=== PATIENT | female | born 1940 | race Caucasian/White ===

== ENCOUNTER 2017-12-29 05:18 | Day surgery (SDC) | payer OTHER, BC ==
[2017-12-25 09:43] VITALS: BMI 34.0
--- NOTE | 2017-12-25 10:41 | PAT Medication Instructions ---
Service Date Dec 25, 2017. Current Home Medication List Acetaminophen (Tylenol), 1,000 MG PO QID PRN for Pain Amlodipine (Norvasc), 10 MG PO BID Ascorbic Acid (Vitamin C), 1 TAB PO QPM Aspirin (Aspirin Ec), 160 MG PO HS Calcium Carbonate-Vitamin D W/ (Caltrate 600 Plus), 1 TAB PO BID Diphenhydramine-Acetaminophen (Acetaminophen Pm Extra St), 1 TAB PO HS Evolocumab (Repatha), 1 DOSE INJ 2x/month Fluticasone Propionate (Nasal) (Flonase Allergy Relief), 1 DOSE SHERLEY UD PRN for prn Gabapentin (Neurontin), 100 MG PO HS PRN for Pain Hydrochlorothiazide (Hydrochlorothiazide), 25 MG PO QAM Lisinopril (Zestril), 40 MG PO QAM Loperamide Hcl (Imodium), 2 MG PO UD PRN for PRN Meclizine HCl (Meclizine 25), 12.5 MG PO UD PRN for dizziness Metformin Hcl (Glucophage), 850 MG PO BID Metoprolol Succ (Toprol Xl) (Toprol-Xl), 50 MG PO BID Nitroglycerin (Nitrostat), 0.4 MG UT PRN Nystatin (Topical) (Nystop), Unknown Dose TOP UD PRN for prn Ranitidine (Zantac), 150 MG PO BID PRN [Coq-10], 100 MG PO QAM [azelastine nasal], Unknown Dose SHERLEY UD PRN for prn [premarin 0.625mg ], Unknown Dose EXT weekly Medication Instructions For Your Scheduled Surgery -Continue as directed: Evolocumab (Repatha), 1 DOSE INJ 2x/month Nitroglycerin (Nitrostat), 0.4 MG UT PRN - Hold the following medications starting now: [Coq-10], 100 MG PO QAM - Hold the following medications per your electric plater's instructions: Aspirin (Aspirin Ec), 160 MG PO HS - Hold the following medications 24 hours prior to surgery: [premarin 0.625mg ], Unknown Dose EXT weekly Nystatin (Topical) (Nystop), Unknown Dose TOP UD PRN for prn - Hold the following medications the morning of surgery: Calcium Carbonate-Vitamin D W/ (Caltrate 600 Plus), 1 TAB PO BID Hydrochlorothiazide (Hydrochlorothiazide), 25 MG PO QAM Lisinopril (Zestril), 40 MG PO QAM Loperamide Hcl (Imodium), 2 MG PO UD PRN for PRN Metformin Hcl (Glucophage), 850 MG PO BID - Take the following medications the morning of surgery with a sip of water: Acetaminophen (Tylenol), 1,000 MG PO QID PRN for Pain (if needed, cane be taken up to four hours before surgery) Amlodipine (Norvasc), 10 MG PO BID Fluticasone Propionate (Nasal) (Flonase Allergy Relief), 1 DOSE SHERLEY UD PRN for prn (if needed) Gabapentin (Neurontin), 100 MG PO HS PRN for Pain (if needed) Meclizine HCl (Meclizine 25), 12.5 MG PO UD PRN for dizziness (if needed) Metoprolol Succ (Toprol Xl) (Toprol-Xl), 50 MG PO BID Ranitidine (Zantac), 150 MG PO BID PRN (if needed) [azelastine nasal], Unknown Dose SHERLEY UD PRN for prn (if needed) - Take the following medications as scheduled the night before surgery: Acetaminophen (Tylenol), 1,000 MG PO QID PRN for Pain (if needed) Amlodipine (Norvasc), 10 MG PO BID Ascorbic Acid (Vitamin C), 1 TAB PO QPM Calcium Carbonate-Vitamin D W/ (Caltrate 600 Plus), 1 TAB PO BID Diphenhydramine-Acetaminophen (Acetaminophen Pm Extra St), 1 TAB PO HS Fluticasone Propionate (Nasal) (Flonase Allergy Relief), 1 DOSE SHERLEY UD PRN for prn (if needed) Gabapentin (Neurontin), 100 MG PO HS PRN for Pain (if needed) Loperamide Hcl (Imodium), 2 MG PO UD PRN for PRN (if needed) Meclizine HCl (Meclizine 25), 12.5 MG PO UD PRN for dizziness (if needed) Metformin Hcl (Glucophage), 850 MG PO BID Metoprolol Succ (Toprol Xl) (Toprol-Xl), 50 MG PO BID Ranitidine (Zantac), 150 MG PO BID PRN (if needed) [azelastine nasal], Unknown Dose SHERLEY UD PRN for prn (if needed) If you have any questions please call us at [phone] or [phone] or [phone]
[2017-12-25 12:08] LABS: BASO % 0.4 %; BASO ABS # 0.04 K/uL (0-0.2); EOS % 2.5 %; EOS ABS # 0.24 K/uL (0-0.5); HEMOGLOBIN 13.1 g/dL (12.0-16.0); IG# 0.04 K/uL (0.00-0.02); LYMPH % 30.2 %; LYMPH ABS # 2.91 K/uL (1.2-3.4); MEAN CELL VOLUME 93.1 fL (80-100); MEAN CORPUSCULAR HEMOGLOBIN 31.3 pg (25-34); MEAN CORPUSCULAR HGB CONC 33.6 g/dl (32-36); MEAN PLATELET VOLUME 9.3 fL (7.4-10.4); MONO % 8.4 %; MONO ABS # 0.81 K/uL (0.11-0.59); NEUT % 58.1 %; NEUT ABS # 5.58 K/uL (1.4-6.5); PLATELET COUNT 387 K/uL (130-400); RED CELL DISTRIBUTION WIDTH CV 13.2 % (11.5-14.5); RED CELL DISTRIBUTION WIDTH SD 45.2 fL (36.4-46.3); WHITE BLOOD COUNT 9.62 K/uL (4.8-10.8)
[~2017-12-29] VITALS: Ht 148.6 cm; Wt 75.6 kg
[~2017-12-29 05:18] MED LIST: ACET-1256 PO; AMLO-114 PO; ASCA500 PO; ASPI81TA28 PO; AZELASTINE NAE; CALCTAB7 PO; COQ-10 PO; DIPH1TAB PO; EVOL1.7I INJ; FLUT0.15 NAE; GABA-112 PO; HYDR12.55 PO; IMD/2 PO; LISI-725 PO; MECL-91 PO; METF-383 PO; METO25TA3 PO; NTRGSL/4 UT; NYST100010 TOP; PREMARIN 0.625 MG EXT; RANI150T85 PO
[2017-12-29 05:56] VITALS: BP 170/80; PULSE 72; TEMP 37; O2SAT 98; Ht 148.6 cm; Wt 75.6 kg
[2017-12-29] MEDS ORDERED: LACTATED RINGER'S 1000ML 1,000 ML IV SCH (06:00)
[2017-12-29] MEDS ORDERED: CEFAZOLIN 2000MG IV PUSH 15 ML IV SCH (06:00)
[2017-12-29] MEDS ORDERED: HEPARIN SOD (PORCINE) 1000 UNIT/ML 10 ML VIAL ONE (06:45)
[2017-12-29] MEDS ORDERED: CEFAZOLIN SOD 1 GM VIAL ONE (06:45)
[2017-12-29] MEDS ORDERED: BUPIVACAINE 0.5 % 5 MG/1 ML MPF 30ML VIAL ONE (06:45)
[2017-12-29] MEDS ORDERED: CONRAY 60% 50 ML VIAL ONE (06:45)
--- NOTE | 2017-12-29 06:54 | History & Physical Bridge Note ---
H&P Re-Evaluation Bridge Note: I have examined the patient, reviewed the History & Physical and in the interval since the performance of the History & Physical I have noted the following changes of clinical significance: No changes noted
[2017-12-29] MEDS ORDERED: MIDAZOLAM HCL 1 MG/ML 2ML VIAL ONE (06:56)
[2017-12-29] MEDS ORDERED: FENTANYL CITRATE INJ 50 MCG/1 ML 2 ML VIAL ONE ×2 (06:56→08:19)
[2017-12-29] MEDS ORDERED: PROPOFOL IV EMULSION 10 MG/ML 20 ML VIAL IV ONE ×2 (07:59→08:21)
[2017-12-29] MEDS ORDERED: ONDANSETRON INJ 2 MG/ML 2 ML VIAL ONE ×2 (07:59→10:14)
[2017-12-29] MEDS ORDERED: ROCURONIUM BROMIDE 10 MG/ML 5 ML VIAL IV ONE (07:59)
[2017-12-29] MEDS ORDERED: LIDOCAINE HCL 2% 2 ML VIAL (20MG/ML) ONE (07:59)
[2017-12-29] MEDS ORDERED: NEOSTIGMINE METHYLSULFATE 5 MG/5 ML SYR ONE (08:04)
[2017-12-29] MEDS ORDERED: GLYCOPYRROLATE INJ 0.2 MG/ML VIAL ONE ×2 (08:04→08:06)
--- NOTE | 2017-12-29 08:26 | [facility] Post Operative Brief Note ---
Immediate Operative Summary Operative Date Dec 29, 2017. Pre-Operative Diagnosis 1.Calculus of Gallbladder without cholecystitis, without obstruction. 2. Sludge in Gallbladder 3. Abdominal Pain, Right Upper Quadrant Post-Operative Diagnosis Same Procedure(s) Performed Laparoscopic Cholecystectomy Surgeon Dr. Clif Zamudio Cross Tie Tram Loader Surgeon(s) None Estimated Blood Loss 5mL Findings Consistent with Post-Op Diagnosis Specimens Permanent A. Gallbladder and Contents Drains None Anesthesia Type General Complication(s) none Disposition Disposition: Recovery Room / PACU
[2017-12-29] MEDS ORDERED: ATROPINE SULFATE 0.1 MG/ML 5ML SYR IV PRN (08:30)
[2017-12-29] MEDS ORDERED: FENTANYL CITRATE INJ 50 MCG/1 ML 2 ML VIAL IV PRN (08:30)
[2017-12-29] MEDS ORDERED: EpHEDrine SULFATE INJ 50 MG/ML AMP IV PRN (08:30)
[2017-12-29] MEDS ORDERED: ONDANSETRON INJ 2 MG/ML 2 ML VIAL IV PRN ×2 (08:30→08:45)
[2017-12-29] MEDS ORDERED: SODIUM CHLORIDE 0.9% 1000ML 1,000 ML IV SCH (08:42)
[2017-12-29] MEDS ORDERED: TRAMADOL HCL 50 MG TAB PO PRN (08:45)
[2017-12-29] MEDS ORDERED: MoRPHine SULFATE 4 MG/ML 1 ML CARP\\VIAL IV PRN (08:45)
--- NOTE | 2017-12-29 08:46 | Discharge Instructions ---
Discharge Instructions Date of Service Dec 29, 2017. Admission Reason for Admission: Calculus Of Gallbladder Discharge Discharge Diagnosis / Problem: Same Discharge Goals Goal(s): Decrease discomfort Activity Recommendations Activity Limitations: per Instructions/Follow-up section Lifting Limitations: no more than 10 pounds (foer 2 weeks) . Instructions / Follow-Up Instructions / Follow-Up Post-Surgical ~ Discharge Instructions Activity Recommendations: - lifting limitation: (10 pounds for 2 weeks), - exercise/sex/sports limit: (nonstrenuous for 2 weeks), - driving or machine use limit: (none for 1 week), - Shower/bathe limit: (may shower beginning tomorrow) Diet: - Resume previous diet SPECIAL CARE INSTRUCTIONS: - May shower in 24 hours. Let water run over area and pat dry. - Leave steri strips on for one week. - Call the surgeon's office with any questions or concerns - - (ex. temperature higher than 101 degrees F, excessive bleeding or pain). MEDICATIONS: - Resume previous medications unless instructed otherwise by your surgeon. - Ibuprofen 600 mg every 6 hours with food - Tramadol 1 every 6 hours, as needed for pain FOLLOW UP VISIT: - If not already scheduled, please call the office to schedule a two week follow-up appointment. Office number Current Hospital Diet Patient's current hospital diet: Discharge Diet Recommended Diet: Diabetes Type 2 Diet Procedures Procedures Performed: Laparoscopic Cholecystectomy Pending Studies Studies pending at discharge: yes List of pending studies: Pathology Medical Emergencies . Who to Call and When: Medical Emergencies: If at any time you feel your situation is an emergency, please call 911 immediately. . Non-Emergent Contact Non-Emergency issues call your: Primary Care Provider, Surgeon Call Non-Emergent contact if: your pain is worsening, wound has increased redness, wound has increased pain . "Provider Documentation" section prepared by Clif Zamudio. . VTE Core Measure Inpt VTE Proph given/why not?: Treatment not indicated
--- NOTE | 2017-12-29 09:22 | Anesthesiology Progress Note ---
Anesthesia Post Op Note Date & Time Dec 29, 2017 at 09:22 Vital Signs Pain Intensity: 0 Vital Signs Past 12 Hours Date Time Temp Pulse Resp B/P (MAP) Pulse Ox O2 Delivery O2 Flow Rate FiO2 12/29/17 08:50 36.3 68 17 127/62 96 Non-Rebreather 10 12/29/17 05:56 37.0 72 16 170/80 (110) 98 Room Air Notes Mental Status: alert / awake / arousable, participated in evaluation Pt Amnestic to Procedure: Yes Nausea / Vomiting: adequately controlled Pain: adequately controlled Airway Patency, RR, SpO2: stable & adequate BP & HR: stable & adequate Hydration State: stable & adequate Anesthetic Complications: no major complications apparent
--- NOTE | 2017-12-29 10:01 | OPERATIVE REPORT ---
DATE OF OPERATION: 12/29/2017 PREOPERATIVE DIAGNOSES: Cholelithiasis, gallbladder sludge and chronic cholecystitis. POSTOPERATIVE DIAGNOSES: Same. PROCEDURE: Laparoscopic cholecystectomy. SURGEON: Dr. Zamudio. FINDINGS: The gallbladder was mildly dilated. The cystic duct was narrow. The liver was enlarged, but smooth. There were tiny stones within the lumen of the gallbladder. TECHNIQUE: The patient was given a general anesthetic and the area was prepped and draped in the usual sterile fashion. Transverse incision was made below the umbilicus, carried down through the subcutaneous tissue to the fascia, which was grasped with 2 Long clamps and incised between. The peritoneum was identified, incised, and the introducer was placed bluntly. The abdomen was then insufflated to a pressure of 15 mmHg of carbon dioxide. The upper midline, mid clavicular and anterior axillary introducers were placed under direct vision through small skin incisions. Traction was placed on the gallbladder beginning on the lateral side. The peritoneum was opened and peeled down towards the common bile duct. Further dissection was carried out on the medial side and over the anterior surface exposing the cystic duct. The infundibulum was dissected away from the liver on the lateral and medial sides. The grasper created a hole in the gallbladder and so suction was used to remove the remainder of the bile. I then elevated the infundibulum and I was able to establish a plane behind the cystic duct. That also allowed me to identify the cystic artery and isolate it. Three clips were placed on the proximal cystic duct, 1 near the gallbladder and it was divided. Two clips were placed on the proximal cystic artery and one near the gallbladder and was divided. Gallbladder was then peeled off the liver bed using cautery. There was 1 vein that was clamped and divided prior to cautery division of the vein. Once the gallbladder was completely from liver, it was placed into an Endobag and brought out through the upper midline incision. That introducer was replaced and the subdiaphragmatic and subhepatic spaces were irrigated. The irrigation was removed and that was repeated until the return was clear. The gallbladder bed of the liver was inspected and there was no bleeding. The previously placed clips were inspected and were intact. The gas was allowed to escape and the introducers were removed. The fascia of the umbilical and upper midline introducer sites was closed with interrupted 0 Vicryl and skin of all the incisions was closed with 4-0 Monocryl in either an interrupted or running subcuticular fashion. The skin was anesthetized with 0.5% Marcaine. The skin was cleansed, dried, benzoin placed, and Steri-Strips applied. Estimated blood loss was 5 mL. Sponge, needle and instrument counts were correct prior to closure. The patient tolerated the surgical procedure without complication and was transferred to recovery. I attest to the content of the Intraoperative Record and any orders documented therein. Any exception s are noted below.
[2017-12-29 10:12] VITALS: BP 140/63; PULSE 74; TEMP 36.8; O2SAT 89
[2017-12-29 10:42] VITALS: BP 130/59; PULSE 67; O2SAT 94
[2017-12-29 11:12] VITALS: BP 121/73; PULSE 70; TEMP 36.7; O2SAT 93
== END 2017-12-29 11:39 | disposition home or self-care (01) ==
LOC: C.ACU 05:18
PROVIDERS: ATTEND Surgery
DX: K80.10 Calculus of gallbladder with chronic cholecystitis without obstruction (principal); K82.8 Other specified diseases of gallbladder; I25.10 Atherosclerotic heart disease of native coronary artery without angina pectoris; I10 Essential (primary) hypertension; M19.90 Unspecified osteoarthritis, unspecified site; I73.9 Peripheral vascular disease, unspecified; E11.9 Type 2 diabetes mellitus without complications; K21.9 Gastro-esophageal reflux disease without esophagitis; K75.81 Nonalcoholic steatohepatitis (NASH); Z88.1 Allergy status to other antibiotic agents; Z98.51 Tubal ligation status; Z90.710 Acquired absence of both cervix and uterus; F17.200 Nicotine dependence, unspecified, uncomplicated; Z79.82 Long term (current) use of aspirin; Z79.899 Other long term (current) drug therapy; Z98.890 Other specified postprocedural states

== ENCOUNTER 2023-06-20 11:41 | Inpatient (IN) ==
--- NOTE | 2023-06-20 11:47 | Emergency Department Note ---
Impression & Plan Nausea & vomiting, Stroke-like symptoms, Back pain ED Provider Note NAME: COREY BORJA AGE: 82 SEX: F : 1940 ARRIVES VIA: Ambulance INFORMANT: Patient, ED PROVIDER(S): Reno Toro MD CHIEF COMPLAINT: Possible right-sided weakness, vomiting, back pain MEDICAL DECISION MAKING: Patient's last known well was midnight not a TNK candidate. EMS was concerned as the patient might have some left-sided weakness but this could have been secondary to pain. Patient reportedly did have a recent fall about a week and a half ago and did have some imaging completed which did show a vertebral compression fracture of the thoracic spine. Patient reportedly was mildly lethargic and mildly hypertensive and did have an episode of vomiting. Stroke protocols initiated but not a TNK candidate given last known well at midnight. Initially no records to review other than a medication list. Patient does take aspirin but no other blood thinners. I did ask case management to look through the patient's [facility] records for most recent primary care visit note and medication list. Patient's blood work shows no leukocytosis of 14 but this could be related to recent steroid use. The patient's hemoglobin is slightly low at 11.3. Platelet count is normal. Kidney function unremarkable but an elevated BUN. The patient did receive IV fluids as well as calcium replacement for hypocalcemia. CT head and angiography's are negative. The patient's initial troponin negative. Urinalysis negative for blood or infection. Given the patient's symptoms and reported feelings of weakness on the left side do not think it unreasonable to keep in hospital for further evaluation and treatment. Did speak with Joellen Shen PA-C and the patient was admitted to the medicine service. Critical Care: I have personally spent 35 minutes of critical care time in direct management of this patient. This includes bedside care, interpretation of diagnostic studies, and testing, discussion with consultants, patient, and family members, and other require inpatient management activities. This 35 minutes is in excess of all separately billable procedures. Prior /Outside records reviewed: I reviewed an outpatient [employer] note from Dr. Solomon dated June 16, 2023. Plan at that time was to trial some baclofen and steroids. The patient was pending an x-ray at that time. X-ray results not available at the time of the visit. Differential diagnosis: Musculoskeletal pain, referred pain, stroke, mini stroke, gastroenteritis, enteritis, electrolyte abnormality. Diagnostics, as interpreted by me: ECG: Normal sinus rhythm, rate of 100, normal intervals, normal axis no ST elevations. Slight ST depression noted in the lateral leads. Cardiac monitoring: An order was placed for continuous cardiac monitoring. The monitor shows a rate of 77 with sinus rhythm. Patient was placed on pulse oximetry Medical decision rules: None Imaging studies: See below I informally reviewed the patient's CT noncontrast of the head which does not show obvious ICH. HPI: Patient presents from home via EMS due to concern for back pain nausea vomiting and possible left-sided weakness. The patient reports that she did feel as though there was a burning in of in her throat that radiated downward and seem to progressed to her left arm and left leg. Patient denies any falls or trauma since she had a fall about 10 days ago. Patient did have some associated nausea and vomiting in route did receive Zofran. Patient denies any headache or current nausea. Patient has been taking muscle relaxants and prednisone after recent diagnosis of a compression fracture in her back. Patient states that this has improved some of her symptoms. Patient does not take anything for symptoms this morning. Patient denies any chest pains or shortness of breath. The patient stated cough that is nonproductive. She denies any alcohol or tobacco use. Family bedside also states that the patient does take aspirin but no blood thinners and the patient has had no falls since she had a fall 2 Saturdays ago. BSG in route was not low. PAST MEDICAL HISTORY: See Below PAST SURGICAL HISTORY: See Below SOCIAL HISTORY: See Below HOME MEDICATIONS: See Below ALLERGIES: See Below VITALS: See Below PHYSICAL EXAMINATION: GENERAL: Fatigued in appearance but nontoxic. EYE EXAM: Normal conjunctiva. PERRL, no anisocoria and EOM's grossly intact w/o pain. OROPHARYNX: Moist mucus membranes, grossly normal dentition. NECK: Supple, no nuchal rigidity, no adenopathy, non-tender. No signs of meningismus. FROM of the neck with good chin to chest and neck extension. No stridor. LUNGS: Clear to auscultation. Normal chest wall mechanics. HEART: NSR, no MRG. ABDOMEN: Abdomen soft, non-tender, no masses, no rebound or guarding. BACK: Lower thoracic/upper lumbar midline spine discomfort. No step-offs. SKIN: No rashes and no bruising. UPPER EXTREMITIES: Upper extremities are grossly normal. LOWER EXTREMITIES: Grossly normal, no edema. NEURO EXAM: A&O x3, cranial nerves II-XII grossly intact, normal speech, moves all 4 extremities. Good oxxemd-en-cjmc, no drift and no sensory deficits. Past Med/Surg History Medical History ASCVD (arteriosclerotic cardiovascular disease) CKD (chronic kidney disease) stage 3, GFR 30-59 ml/min Diverticulitis Dyslipidemia Essential hypertension GERD (gastroesophageal reflux disease) Lumbar spinal stenosis Osteoarthritis Peripheral vascular disease Type 2 diabetes mellitus Urge incontinence of urine Surgical History History of cataract surgery History of hysterectomy History of laparoscopic cholecystectomy History of tubal ligation S/P arthroscopic knee surgery S/P vaginopexy Status post angioplasty with stent Family History Mother Hypertension Breast cancer Father Hypertension Heart disease Aunt Breast cancer Sister Ovarian cancer Social History Smoking Status: Never smoker Second Hand Exposure: No; Do You Dip or Chew Tobacco: No; Tobacco Cessation Education Requested by Patient: No Hx Alcohol Use: No Hx Substance Use: No Preferred Language: Albanian Communication Ability: Effective [employer] Lead Required: No Beliefs That Will Affect Care: None Current Living Situation: Family Other Information That Helps Us Care for You: No Feels Safe at Home: Yes Safety Concerns: Feels Safe At This Time Assistive Devices: None Allergies Allergies Allergy/AdvReac Type Severity Reaction Status Date / Time quinine Allergy Intermediate rash Verified 12/29/17 06:05 atorvastatin Allergy Mild MYALGIAS Verified 12/29/17 06:05 propoxyphene AdvReac Intermediate N/V and Verified 12/29/17 06:05 dizziness erythromycin base AdvReac Mild "sick in Verified 12/29/17 06:05 stomach" Home Meds Home Medications Medication Instructions Recorded Confirmed amlodipine 10 mg tablet 10 mg PO DAILY ##0 02/15/07 06/20/23 evolocumab 1 dose INJ Q14D ##0 12/25/17 06/20/23 aspirin 81 mg tablet,delayed 162 mg PO HS 06/20/23 06/20/23 release baclofen 10 mg tablet 10 mg PO TID 06/20/23 06/20/23 chlorthalidone 25 mg tablet 25 mg PO DAILY 06/20/23 06/20/23 conjugated estrogens 0.625 mg/gram 1 applic vaginal WK 06/20/23 06/20/23 vaginal cream (Premarin) cyanocobalamin (vitamin B-12) 1,000 mcg PO DAILY 06/20/23 06/20/23 1,000 mcg tablet (Vitamin B-12) fluticasone propionate 50 2 spray intranasal DAILY PRN Nasal 06/20/23 06/20/23 mcg/actuation nasal Congestion spray,suspension gabapentin 100 mg capsule 100 mg PO HS 06/20/23 06/20/23 isosorbide mononitrate 30 mg 30 mg PO DAILY 06/20/23 06/20/23 tablet,extended release 24 hr lisinopril 40 mg tablet 40 mg PO DAILY 06/20/23 06/20/23 metformin 500 mg tablet,extended 500 mg PO DAILY 06/20/23 06/20/23 release 24 hr methylprednisolone 4 mg tablets in See Rx Instructions .Route .COMPLEX 06/20/23 06/20/23 a dose pack (Medrol (Yasmany)) metoprolol succinate 50 mg 50 mg PO AMPM 06/20/23 06/20/23 tablet,extended release 24 hr omeprazole 20 mg capsule,delayed 20 mg PO DAILY 06/20/23 06/20/23 release ondansetron HCl 4 mg tablet 4 mg PO Q6H PRN Nausea 06/20/23 06/20/23 spironolactone 25 mg tablet 12.5 mg PO DAILY 06/20/23 06/20/23 Results & Data (ED) Vital Signs Vital Signs - 24 hr 06/20/23 11:56 06/20/23 11:56 06/20/23 12:06 Temperature 36.8 C Temperature Source Oral Pulse Rate 93 H Pulse Rate [Apical] 79 Pulse Rate from SpO2 Sensor Pulse Rhythm [Apical] Pulse Strength [Apical] Respiratory Rate 18 18 Respiratory Effort / Characteristics Non-Labored Non-Labored Respiratory Depth Normal Normal Respiratory Pattern Regular Regular Blood Pressure 179/73 H Blood Pressure [Right Arm] 179/73 H Blood Pressure Mean 108 Blood Pressure Mean [Right Arm] 108 Pulse Oximetry 95 95 Oxygen Delivery Method Room Air Room Air Room Air Sepsis Recent Fever Within 48 Hours No Sepsis New/Unexplained Change in Mental Status No Sepsis Action Taken by Nursing No Action Required 06/20/23 12:01 06/20/23 12:34 06/20/23 13:14 Temperature Temperature Source Pulse Rate 97 H Pulse Rate [Apical] 79 70 Pulse Rate from SpO2 Sensor Pulse Rhythm [Apical] Regular Regular Pulse Strength [Apical] Normal Respiratory Rate 18 16 Respiratory Effort / Characteristics Non-Labored Non-Labored Respiratory Depth Normal Normal Respiratory Pattern Regular Blood Pressure Blood Pressure [Right Arm] 154/77 H 143/68 H Blood Pressure Mean Blood Pressure Mean [Right Arm] 102 93 Pulse Oximetry 96 98 Oxygen Delivery Method Room Air Room Air Sepsis Recent Fever Within 48 Hours Sepsis New/Unexplained Change in Mental Status Sepsis Action Taken by Nursing 06/20/23 13:15 Temperature Temperature Source Pulse Rate 71 Pulse Rate [Apical] Pulse Rate from SpO2 Sensor 77 Pulse Rhythm [Apical] Pulse Strength [Apical] Respiratory Rate 16 Respiratory Effort / Characteristics Respiratory Depth Respiratory Pattern Blood Pressure 143/68 H Blood Pressure [Right Arm] Blood Pressure Mean 93 Blood Pressure Mean [Right Arm] Pulse Oximetry 96 Oxygen Delivery Method Room Air Sepsis Recent Fever Within 48 Hours Sepsis New/Unexplained Change in Mental Status Sepsis Action Taken by Shelter Medications Current Medication List: was personally reviewed by me Laboratory Data Attestation: I reviewed the patient's lab results. 06/20/23 12:00 06/20/23 12:00 Lab Results 06/20/23 06/20/23 06/20/23 Range/Units 12:00 12:00 12:00 WBC 14.88 H (4.8-10.8) K/ul RBC 3.49 L (4.20-5.40) M/uL Hgb 11.3 L (12.0-16.0) g/dl Hct 33.3 L (37.0-47.0) % MCV 95.4 (80.0-100.0) fL MCH 32.4 (25.0-34.0) pg MCHC 33.9 (32.0-36.0) g/dL RDW Std Deviation 47.4 H (36.4-46.3) fL RDW Coeff of Shirley 13.6 (11.5-14.5) % Plt Count 382 (130-400) K/uL MPV 9.4 (9.4-12.4) fL Immature Gran % (Auto) 3.6 % Neut % (Auto) 75.0 % Lymph % (Auto) 16.7 % [place] % (Auto) 4.4 % Eos % (Auto) 0.0 % Baso % (Auto) 0.3 % Neut # (Auto) 11.16 H (1.40-6.50) K/uL Lymph # (Auto) 2.49 (1.2-3.4) K/uL [place] # (Auto) 0.65 H (0.11-0.59) K/uL Eos # (Auto) 0.00 (0-0.50) K/uL Baso # (Auto) 0.05 (0-0.2) K/uL Immature Gran # (Auto) 0.53 H (0.01-0.20) K/uL PT 11.0 (9.0-12.0) Seconds INR 1.0 (0.9-1.1) APTT 22.5 (21.0-31.0) Seconds PTT Ratio 0.8 Sodium 133 L (136-145) mmol/L Potassium 4.5 (3.5-5.1) mmol/L Chloride 105 (98-107) mmol/L Carbon Dioxide 20 L (21-32) mmol/L Anion Gap 8 (3-11) BUN 52 H (6-23) mg/dl Creatinine 0.93 (0.6-1.2) mg/dl Est Cr Clr Drug Dosing Not Reportable Est GFR ( Amer) 67.3 ml/min Est GFR (Non-Af Amer) 58.0 ml/min BUN/Creatinine Ratio 55.9 H (10-20) Glucose 187 H (70-99(Fasting)) mg/dl POC Glucose (70-99) mg/dl Calcium 8.2 L (8.6-10.3) mg/dl Magnesium 1.7 (1.7-2.4) mg/dl Total Bilirubin 0.4 (0.2-1.0) mg/dl AST 15 (13-39) U/L ALT 31 (7-52) U/L Alkaline Phosphatase 98 (34-104) U/L Troponin I High Sens 5.9 (0-14) pg/ml Total Protein 5.9 L (6.0-8.3) gm/dl Albumin 3.4 (3.4-5.0) gm/dl Globulin 2.5 (2.5-4.0) gm/dl Albumin/Globulin Ratio 1.4 (0.9-2) / Range/Units 12:09 WBC (4.8-10.8) K/ul RBC (4.20-5.40) M/uL Hgb (12.0-16.0) g/dl Hct (37.0-47.0) % MCV (80.0-100.0) fL MCH (25.0-34.0) pg MCHC (32.0-36.0) g/dL RDW Std Deviation (36.4-46.3) fL RDW Coeff of Shirley (11.5-14.5) % Plt Count (130-400) K/uL MPV (9.4-12.4) fL Immature Gran % (Auto) % Neut % (Auto) % Lymph % (Auto) % [place] % (Auto) % Eos % (Auto) % Baso % (Auto) % Neut # (Auto) (1.40-6.50) K/uL Lymph # (Auto) (1.2-3.4) K/uL [place] # (Auto) (0.11-0.59) K/uL Eos # (Auto) (0-0.50) K/uL Baso # (Auto) (0-0.2) K/uL Immature Gran # (Auto) (0.01-0.20) K/uL PT (9.0-12.0) Seconds INR (0.9-1.1) APTT (21.0-31.0) Seconds PTT Ratio Sodium (136-145) mmol/L Potassium (3.5-5.1) mmol/L Chloride (98-107) mmol/L Carbon Dioxide (21-32) mmol/L Anion Gap (3-11) BUN (6-23) mg/dl Creatinine (0.6-1.2) mg/dl Est Cr Clr Drug Dosing Est GFR ( Amer) ml/min Est GFR (Non-Af Amer) ml/min BUN/Creatinine Ratio (10-20) Glucose (70-99(Fasting)) mg/dl POC Glucose 182 H (70-99) mg/dl Calcium (8.6-10.3) mg/dl Magnesium (1.7-2.4) mg/dl Total Bilirubin (0.2-1.0) mg/dl AST (13-39) U/L ALT (7-52) U/L Alkaline Phosphatase (34-104) U/L Troponin I High Sens (0-14) pg/ml Total Protein (6.0-8.3) gm/dl Albumin (3.4-5.0) gm/dl Globulin (2.5-4.0) gm/dl Albumin/Globulin Ratio (0.9-2) Administered Medications Acetaminophen (Acetaminophen 325 Mg Tab) 650 mg PO Q4H PRN PRN Reason: Pain or Fever Stop: 07/20/23 16:54 Last Admin: 06/20/23 17:40 Dose: 650 mg Documented By: MARYLU Insulin Aspart (Insulin Aspart Per Unit Charge) 0 units SC ACHS ROSA Stop: 07/20/23 16:59 Last Admin: 06/20/23 17:46 Dose: 2 units Documented By: MARYLU Co-signed By: AM Miscellaneous (Patient's Height &/Or Weight Needed) 1 each N/A Q2H ROSA Stop: 07/20/23 17:14 Last Admin: 06/20/23 17:24 Dose: 1 each Documented By: MARYLU Discontinued Medications Acetaminophen (Acetaminophen 500 Mg Tab) 1,000 mg PO NOW STA Stop: 06/20/23 13:27 Last Admin: 06/20/23 13:50 Dose: 1,000 mg Documented By: KAYLYN Calcium Gluconate () 1,000 mg in 60 mls @ 240 mls/hr IV NOW STA Stop: 06/20/23 13:40 Last Infusion: 06/20/23 14:20 Dose: 0 mls/hr Documented By: Admin: 06/20/23 13:51 Dose: 240 mls/hr Documented By: KAYLYN Ioversol (Ioversol 350 Mg 125ml Prefilled Syringe) 117 ml IV ONCE ONE Stop: 06/20/23 11:53 Last Admin: 06/20/23 11:52 Dose: 117 ml Documented By: PLW Lidocaine (Lidocaine 5% 1 Patch) 1 patch TD NOW STA Stop: 06/20/23 13:27 Last Admin: 06/20/23 13:50 Dose: 1 patch Documented By: AP Morphine Sulfate (Morphine Sulfate 2 Mg/Ml Carp) 2 mg IV NOW STA Stop: 06/20/23 13:27 Last Admin: 06/20/23 13:51 Dose: 2 mg Documented By: AP Imaging Data Radiologist's Impression: Head CT 06/20/23 11:[address] DOSE: 1228.07 mGy.cm HISTORY: neuro deficit, acute stroke suspected TECHNIQUE: Multiaxial CT images of the head were performed without the use of intravenous contrast. Automated exposure control was utilized for this study. A dose lowering technique was utilized adhering to the principles of ALARA. Comparison: None. Findings: There is a small retention cyst within the right maxillary sinus. The right mastoid air cells are clear. There is complete opacification of the left mastoid air cells. Prior bilateral lens replacement. The calvarium and skull base are intact. There is no mass, hematoma, midline shift, acute infarct. White matter hypodensity is nonspecific but suggestive of microvascular ischemic change. The ventricles and sulci demonstrate mild age-related involutional changes. Impression: 1. No acute infarct or intracranial hemorrhage. 2. Left mastoid effusion. 3. Atrophy and microvascular ischemic changes. ACT 112: Negative or not required by law. Electronically signed by: Dannie Munoz M.D. 06/20/2023 12:00 PM Head CTA 06/20/23 11:37 CT angio head w con CLINICAL HISTORY: 82 years-old Female with neuro deficit, acute stroke suspected. Acute or chronic symptoms COMPARISON STUDY: Head CT of same day TECHNIQUE: Following the IV administration of 117 cc of Optiray, CT angiogram of the brain was performed from the skull base to the vertex. Images are reviewed in the axial, sagittal, and coronal planes. 3-D MIPS images are created and assessed. IV contrast was administered without complication. All measurements were obtained according to NASCET criteria. A dose lowering technique was utilized adhering to the principles of ALARA. FINDINGS: CT ANGIOGRAM OF THE BRAIN: Involutional changes with chronic microvascular ischemic disease. The imaged bilateral internal carotid arteries are patent. The bilateral anterior and middle cerebral arteries are also patent. The vertebrobasilar system and posterior cerebral arteries are widely patent. There is no aneurysm, high-grade stenosis, or proximal branch occlusion identified. Dural sinuses appear patent. Prior bilateral lens repair. Polypoid mucosal thickening of the right maxillary sinus. Large left mastoid and middle ear effusions. IMPRESSION: Unremarkable CTA of the head. ACT 112: Negative or not required by law. The above report was generated using voice recognition software. It may contain grammatical, syntax or spelling errors. Electronically signed by: Bhaskar Estevez M.D. 06/20/2023 12:09 PM Neck CTA 06/20/23 11:37 CT angio neck with con CLINICAL HISTORY: neuro deficit, acute stroke suspected TECHNIQUE: CT angiography of the neck was performed following intravenous administration of iodinated contrast. Coronal and sagittal MIPS were obtained from the axial data set and were submitted for review. Automated dose lowering techniques and/or adjustment according to patient size were utilized for this examination. All measurements were calculated based on NASCET criteria. Comparison: None available at the time of this dictation. FINDINGS: Lungs and soft tissues are unremarkable. CTA Neck: A 3 vessel aortic arch is shown. There is no significant atherosclerotic plaque in the aortic arch or the origins of the innominate, left common carotid, and left subclavian arteries. Calcification is seen at the origin of the left vertebral artery. Scattered atherosclerotic calcification is seen without significant stenosis. The vertebral arteries are codominant. IMPRESSION: No occlusion, hemodynamically significant stenosis, or dissection in the major cervical arteries. Assessment of stenosis of the internal carotid arteries is based on NASCET criteria. ACT 112: Negative or not required by law. Electronically signed by: Ciro Min M.D. 06/20/2023 12:11 PM Discharge Plan Visit Data Chief Complaint: Stroke Alert ED Provider: Reno Toro Discharge Problem: Nausea & vomiting, Stroke-like symptoms, Back pain Patient Disposition: Admitted As Inpatient Discharge Instructions Interventions: ED Discharge Assessment Last Done: 06/20/23 16:40
[2023-06-20] MEDS ORDERED: IOVERSOL 350 MG 125mL Prefilled Syringe IV ONE (11:52)
--- NOTE | 2023-06-20 12:02 | CT Scan Report ---
HEAD CT NONCONTRAST CT DOSE: 1228.07 mGy.cm HISTORY: neuro deficit, acute stroke suspected TECHNIQUE: Multiaxial CT images of the head were performed without the use of intravenous contrast. A utomated exposure control was utilized for this study. A dose lowering technique was utilized adheri ng to the principles of ALARA. Comparison: None. Findings: There is a small retention cyst within the right maxillary sinus. The right mastoid air angela ls are clear. There is complete opacification of the left mastoid air cells. Prior bilateral lens rep lacement. The calvarium and skull base are intact. There is no mass, hematoma, midline shift, acute i nfarct. White matter hypodensity is nonspecific but suggestive of microvascular ischemic change. The ventricles and sulci demonstrate mild age-related involutional changes. Impression: 1. No acute infarct or intracranial hemorrhage. 2. Left mastoid effusion. 3. Atrophy and microvascular ischemic changes. ACT 112: Negative or not required by law. Electronically signed by: Dannie Munoz M.D. 06/20/2023 12:00 PM
--- NOTE | 2023-06-20 12:11 | CT Scan Report ---
CT angio head w con CLINICAL HISTORY: 82 years-old Female with neuro deficit, acute stroke suspected. Acute or chronic symptoms COMPARISON STUDY: Head CT of same day TECHNIQUE: Following the IV administration of 117 cc of Optiray, CT angiogram of the brain was perfor med from the skull base to the vertex. Images are reviewed in the axial, sagittal, and coronal planes . 3-D MIPS images are created and assessed. IV contrast was administered without complication. All me asurements were obtained according to NASCET criteria. A dose lowering technique was utilized adherin g to the principles of ALARA. FINDINGS: CT ANGIOGRAM OF THE BRAIN: Involutional changes with chronic microvascular ischemic disease. The imaged bilateral internal carot id arteries are patent. The bilateral anterior and middle cerebral arteries are also patent. The vert ebrobasilar system and posterior cerebral arteries are widely patent. There is no aneurysm, high-grad e stenosis, or proximal branch occlusion identified. Dural sinuses appear patent. Prior bilateral lens repair. Polypoid mucosal thickening of the right maxillary sinus. Large left mas toid and middle ear effusions. IMPRESSION: Unremarkable CTA of the head. ACT 112: Negative or not required by law. The above report was generated using voice recognition software. It may contain grammatical, syntax o r spelling errors. Electronically signed by: Bhaskar Estevez M.D. 06/20/2023 12:09 PM
--- NOTE | 2023-06-20 12:12 | CT Scan Report ---
CT angio neck with con CLINICAL HISTORY: neuro deficit, acute stroke suspected TECHNIQUE: CT angiography of the neck was performed following intravenous administration of iodinated contrast. Coronal and sagittal MIPS were obtained from the axial data set and were submitted for rev iew. Automated dose lowering techniques and/or adjustment according to patient size were utilized fo r this examination. All measurements were calculated based on NASCET criteria. Comparison: None available at the time of this dictation. FINDINGS: Lungs and soft tissues are unremarkable. CTA Neck: A 3 vessel aortic arch is shown. There is no significant atherosclerotic plaque in the aor tic arch or the origins of the innominate, left common carotid, and left subclavian arteries. Calcif ication is seen at the origin of the left vertebral artery. Scattered atherosclerotic calcification i s seen without significant stenosis. The vertebral arteries are codominant. IMPRESSION: No occlusion, hemodynamically significant stenosis, or dissection in the major cervical arteries. Assessment of stenosis of the internal carotid arteries is based on NASCET criteria. ACT 112: Negative or not required by law. Electronically signed by: Ciro Min M.D. 06/20/2023 12:11 PM
[2023-06-20 12:17] LABS: Basophils # (auto) 0.05 K/uL (0-0.2); Basophils % (auto) 0.3 %; Hematocrit (blood only) 33.3 % (37.0-47.0); Hemoglobin 11.3 g/dl (12.0-16.0); Immature Granulocytes # (auto) 0.53 K/uL (0.01-0.20); Immature Granulocytes % (auto) 3.6 %; Lymphocytes # (auto) 2.49 K/uL (1.2-3.4); Lymphocytes % (auto) 16.7 %; Mean Corpuscular Hemoglobin 32.4 pg (25.0-34.0); Mean Corpuscular Hgb Conc 33.9 g/dL (32.0-36.0); Mean Corpuscular Volume 95.4 fL (80.0-100.0); Mean Platelet Volume 9.4 fL (9.4-12.4); Monocytes # (auto) 0.65 K/uL (0.11-0.59); Monocytes % (auto) 4.4 %; Neutrophils # (auto) 11.16 K/uL (1.40-6.50); Platelet Count 382 K/uL (130-400); RDW Coefficient of Variation 13.6 % (11.5-14.5); RDW Standard Deviation 47.4 fL (36.4-46.3); Red Blood Count 3.49 M/uL (4.20-5.40); White Blood Count 14.88 K/ul (4.8-10.8)
[2023-06-20 12:31] LABS: Alanine Aminotransferase 31 U/L (7-52); Albumin Globulin Ratio 1.4 (0.9-2); Albumin Level 3.4 gm/dl (3.4-5.0); Alkaline Phosphatase 98 U/L (34-104); Anion Gap 8 (3-11); Aspartate Aminotransferase 15 U/L (13-39); BUN Creatinine Ratio 55.9 (10-20); Bilirubin,Total 0.4 mg/dl (0.2-1.0); Blood Urea Nitrogen 52 mg/dl (6-23); Calcium 8.2 mg/dl (8.6-10.3); Carbon Dioxide 20 mmol/L (21-32); Chloride 105 mmol/L (98-107); Est GFR (African American) 67.3 ml/min; Globulin 2.5 gm/dl (2.5-4.0); Glucose 187 mg/dl (70-99(Fasting)); Magnesium 1.7 mg/dl (1.7-2.4); Potassium 4.5 mmol/L (3.5-5.1); Sodium 133 mmol/L (136-145); Total Protein 5.9 gm/dl (6.0-8.3)
[2023-06-20 12:33] LABS: Partial Thromboplastin Ratio 0.8; Partial Thromboplastin Time 22.5 Seconds (21.0-31.0)
[2023-06-20 12:38] LABS: Troponin I High Sensitivity 5.9 pg/ml (0-14)
--- NOTE | 2023-06-20 13:03 | Electrocardiogram Report ---
Test Reason : Blood Pressure : / mmHG Vent. Rate : 100 BPM Atrial Rate : 100 BPM P-R Int : 152 ms QRS Dur : 070 ms QT Int : 332 ms P-R-T Axes : 036 016 061 degrees QTc Int : 428 ms Normal sinus rhythm Low voltage QRS Nonspecific ST and T wave abnormality Abnormal ECG When compared with ECG of 14-MAY-2016 14:18, Vent. rate has increased BY [address] now depressed in Anterior leads Confirmed by Patrick Cortés ([id number]) on 06/20/2023 1:03:23 PM Referred By: REFERRED SELF Confirmed By:Patrick Cortés
[2023-06-20] MEDS ORDERED: LIDOCAINE 5% 1 PATCH TD STA (13:26)
[2023-06-20] MEDS ORDERED: MoRPHine SULFATE 2 MG/ML CARP IV STA (13:26)
[2023-06-20] MEDS ORDERED: ACETAMINOPHEN 500 MG TAB PO STA (13:26)
[2023-06-20] MEDS ORDERED: CALCIUM GLUCONATE 1,000 MG/60 ML BAG IV STA (13:26)
--- NOTE | 2023-06-20 15:01 | History & Physical Report ---
Date of Service June 20, 2023 Assessment & Plan (1) Stroke-like symptoms: Plan: 82 y/o female with history of DM2, ASCVD s/p angio/stent, PVD, HTN, CKD3a, dyslipidemia and spinal stenosis who presented to the ED as a stroke alert. She was a not a candidate for TPA due to timing of last known well (midnight). Her neuro exam in the ED was unremarkable without specific deficits and initial imaging was negative for acute stroke or hemorrhage. She was referred for admission for further w/u and observation. History from the patient is somewhat difficult to follow so additional history was given by her daughter at the bedside and her outpatient Epic records were extensively reviewed. It seems that her symptoms have some level of neurologic component such as TIA or even complex migraine but may also have a component related to her acute on chronic back issues with recently diagnosed compression fracture after a fall at home. We will admit her for the typical TIA/CVA work-up but may also consider further evaluation of her back issues pending hospital course and work-up. She also noted increased urinary symptoms so we will add a UA and culture. Her initial troponin was negative but due to her history of description of the burning sensation starting in her chest, we will trend the troponin and monitor on telemetry. Repeat EKG with any chest pain. - Admit to PCU, neuro checks, fall precautions, aspiration precautions - Trend troponin - Check ECHO - Brain MRI - Neurology consult - PT/OT and speech evaluations (2) Type 2 diabetes mellitus: Plan: Last A1c in Dec was 7.0 - on Metformin at baseline - Hold Metformin while admitted - Insulin sliding scale - Diabetic diet - A1c in AM (3) ASCVD (arteriosclerotic cardiovascular disease): (4) Essential hypertension: (5) Dyslipidemia: Plan: Lipid panel in AM - not currently on a statin (6) Lumbar spinal stenosis: Plan: Recent outpatient x-rays show age-indeterminate T12 compression fracture, new since Dec 2021. However pt with recent fall and trauma to the back so may be related to this event - PT/OT evals - Fall precautions - Pending results of other testing and clinical course, may consider ortho spine or pain management eval (has seen Dr. Joaquin previously for injections) - Hold baclofen for now since causing drowsiness - Increase gabapentin to 300 mg HS to see if this helps pain - Tylenol prn (7) Urge incontinence of urine: Plan: Worsening symptoms - will check for infection Plan Pt seen and reviewed with collaborating physician, Dr. Sr. Plan of care discussed and as outlined above. Code Status: Full code DVT Prophylaxis: Go Shen PA-C History of Present Illness Chief Complaint: Weakness, burning sensation Primary Care Provider: Karine Bonilla DO This is an 82 y/o female with a history of DM2, ASCVD with prior angioplasty/stent, PVD, HTN, CKD3a, dyslipidemia, spinal stenosis, OA, and urge incontinence who presented to the ED today as a stroke alert due to burning sens ation on the left half of her body with question of associated weakness. Today, got up around 5 am and had been incontinent overnight. Ongoing issues with urinary incontinence, which has gradually been worsening. Got up, cleaned self up, and went back to bed. When she got up a little later and was getting ready for the day, she developed a burning sensation in her chest and back that radiated to her left arm, left leg, and neck. Her daughter, who she lives with, also noted that she was weaker and unable able to get up off the chair so they called 911. Family does note that the weakness was bilateral while the burning was only on the left. This burning sensation lasted until after she arrived in the ED then seemed to fade. However, it has returned intermittently since being in the ED although now radiating to her right leg as well. Pt was very tearful during the visit and admits to being frustrated with her worsening health issues. She also notes the loss of her of 62 years last July and has struggled with increased grief as the anniversary approaches. Chronic issues with back pain due to arthritis and spinal stenosis. About ten days ago, she lost her balance while on a step stool and fell landing on back and buttocks. Thinks she did catch her head on the corner of the bifold door as she fell. Since then, she's had increased mid to lower back pain with some difficulty ambulating. Allergies Allergy/AdvReac Type Severity Reaction Status Date / Time quinine Allergy Intermediate rash Verified 12/29/17 06:05 atorvastatin Allergy Mild MYALGIAS Verified 12/29/17 06:05 propoxyphene AdvReac Intermediate N/V and Verified 12/29/17 06:05 dizziness erythromycin base AdvReac Mild "sick in Verified 12/29/17 06:05 stomach" Home Medications Medication Instructions Recorded Confirmed Type amlodipine 10 mg tablet 10 mg PO DAILY ##0 02/15/07 06/20/23 History evolocumab 1 dose INJ Q14D ##0 12/25/17 06/20/23 History aspirin 81 mg tablet,delayed 162 mg PO HS 06/20/23 06/20/23 History release baclofen 10 mg tablet 10 mg PO TID 06/20/23 06/20/23 History chlorthalidone 25 mg tablet 25 mg PO DAILY 06/20/23 06/20/23 History conjugated estrogens 0.625 mg/gram 1 applic vaginal WK 06/20/23 06/20/23 History vaginal cream (Premarin) cyanocobalamin (vitamin B-12) 1,000 mcg PO DAILY 06/20/23 06/20/23 History 1,000 mcg tablet (Vitamin B-12) fluticasone propionate 50 2 spray intranasal DAILY PRN Nasal 06/20/23 06/20/23 History mcg/actuation nasal Congestion spray,suspension gabapentin 100 mg capsule 100 mg PO HS 06/20/23 06/20/23 History isosorbide mononitrate 30 mg 30 mg PO DAILY 06/20/23 06/20/23 History tablet,extended release 24 hr lisinopril 40 mg tablet 40 mg PO DAILY 06/20/23 06/20/23 History metformin 500 mg tablet,extended 500 mg PO DAILY 06/20/23 06/20/23 History release 24 hr methylprednisolone 4 mg tablets in See Rx Instructions .Route .COMPLEX 06/20/23 06/20/23 History a dose pack (Medrol (Yasmany)) metoprolol succinate 50 mg 50 mg PO AMPM 06/20/23 06/20/23 History tablet,extended release 24 hr omeprazole 20 mg capsule,delayed 20 mg PO DAILY 06/20/23 06/20/23 History release ondansetron HCl 4 mg tablet 4 mg PO Q6H PRN Nausea 06/20/23 06/20/23 History spironolactone 25 mg tablet 12.5 mg PO DAILY 06/20/23 06/20/23 History Past Med/Surg History Medical History ASCVD (arteriosclerotic cardiovascular disease) CKD (chronic kidney disease) stage 3, GFR 30-59 ml/min Diverticulitis Dyslipidemia Essential hypertension GERD (gastroesophageal reflux disease) Lumbar spinal stenosis Osteoarthritis Peripheral vascular disease Type 2 diabetes mellitus Urge incontinence of urine Surgical History History of cataract surgery History of hysterectomy History of laparoscopic cholecystectomy History of tubal ligation S/P arthroscopic knee surgery S/P vaginopexy Status post angioplasty with stent Family History Mother Hypertension Breast cancer Father Hypertension Heart disease Aunt Breast cancer Sister Ovarian cancer Social History Smoking Status: Never smoker Second Hand Exposure: No; Do You Dip or Chew Tobacco: No; Tobacco Cessation Education Requested by Patient: No Hx Alcohol Use: No Hx Substance Use: No Preferred Language: Yi Communication Ability: Effective T Rail [place] Required: No Beliefs That Will Affect Care: None Current Living Situation: Family Other Information That Helps Us Care for You: No Feels Safe at Home: Yes Safety Concerns: Feels Safe At This Time Assistive Devices: None Review of Systems Review of Systems: All systems reviewed & are unremarkable except as noted in HPI & below Constitutional: + fatigue and + anorexia; no fever and no chills Eyes: + worsening vision; no diplopia Ear, Nose, Mouth, Throat: + dysphagia (chronic issue - mainly w/ meats like chicken) Respiratory: no cough and no dyspnea Cardiovascular: + chest pain and + palpitations; no edema Gastrointestinal: + heartburn and + vomiting (earlier today x 1); no abdominal pain Genitourinary: + urinary frequency and + urinary incontinence Musculoskeletal: + back pain Integumentary: no rash and no yellowing of the skin Neurologic: + unsteadiness and + generalized weakness Psychiatric: + depression Physical Exam Constitutional: well developed and well nourished; no acute distress Eyes: PERRL, conjunctivae normal, anicteric sclerae ENMT: external ear and nose normal, oropharynx normal Neck: trachea midline Respiratory: no respiratory distress and no labored breathing Auscultation: lungs clear to auscultation bilaterally Cardiovascular: Rate/Rhythm: regular rate and regular rhythm Vessels: radial pulses present; no carotid bruit Extremities: no pedal edema Gastrointestinal (Abdomen): Inspection/Auscultation: normal bowel sounds; abdomen not distended Percussion/Palpation: abdomen soft Musculoskeletal: Head/Neck/Chest: normocephalic, head atraumatic and neck supple Bilateral UE and LE strength 4/5 and equal Skin: no jaundice Neurologic: moves all extremities; no focal motor deficits and not confused Speech / Cognition: normal speech Cranial Nerves: PERRL, normal accommodation, normal facial strength, tongue midline and able to rotate head bilaterally Psychiatric: Orientation: alert and oriented x 3 Eye Contact: + fair eye contact Affect: + tearful affect Mood: + depressed mood Results & Data Results & Data Vital Signs (Past 12 Hours) Vital Signs Temp Pulse Pulse Resp BP BP Pulse Ox 06/20/23 13:14 70 16 143/68 H 98 06/20/23 12:34 79 18 154/77 H 96 06/20/23 12:01 97 H 06/20/23 12:06 79 18 179/73 H 95 06/20/23 11:56 06/20/23 11:56 36.8 C 93 H 18 179/73 H 95 O2 Del Method 06/20/23 13:14 Room Air 06/20/23 12:34 Room Air 06/20/23 12:01 06/20/23 12:06 Room Air 06/20/23 11:56 Room Air 06/20/23 11:56 Room Air Laboratory Results Laboratory Results - last 24 hr 06/20/23 06/20/23 06/20/23 12:00 12:00 12:00 WBC 14.88 H RBC 3.49 L Hgb 11.3 L Hct 33.3 L MCV 95.4 MCH 32.4 MCHC 33.9 RDW Std Deviation 47.4 H RDW Coeff of [place] 13.6 Plt Count 382 MPV 9.4 Immature Gran % (Auto) 3.6 Neut % (Auto) 75.0 Lymph % (Auto) 16.7 [place] % (Auto) 4.4 Eos % (Auto) 0.0 Baso % (Auto) 0.3 Neut # (Auto) 11.16 H Lymph # (Auto) 2.49 [place] # (Auto) 0.65 H Eos # (Auto) 0.00 Baso # (Auto) 0.05 Immature Gran # (Auto) 0.53 H PT 11.0 INR 1.0 APTT 22.5 PTT Ratio 0.8 Sodium 133 L Potassium 4.5 Chloride 105 Carbon Dioxide 20 L Anion Gap 8 BUN 52 H Creatinine 0.93 Est Cr Clr Drug Dosing Not Reportable Est GFR ( Amer) 67.3 Est GFR (Non-Af Amer) 58.0 BUN/Creatinine Ratio 55.9 H Glucose 187 H POC Glucose Calcium 8.2 L Magnesium 1.7 Total Bilirubin 0.4 AST 15 ALT 31 Alkaline Phosphatase 98 Troponin I High Sens 5.9 Total Protein 5.9 L Albumin 3.4 Globulin 2.5 Albumin/Globulin Ratio 1.4 06/20/23 12:09 WBC RBC Hgb Hct MCV MCH MCHC RDW Std Deviation RDW Coeff of [place] Plt Count MPV Immature Gran % (Auto) Neut % (Auto) Lymph % (Auto) [place] % (Auto) Eos % (Auto) Baso % (Auto) Neut # (Auto) Lymph # (Auto) [place] # (Auto) Eos # (Auto) Baso # (Auto) Immature Gran # (Auto) PT INR APTT PTT Ratio Sodium Potassium Chloride Carbon Dioxide Anion Gap BUN Creatinine Est Cr Clr Drug Dosing Est GFR ( Amer) Est GFR (Non-Af Amer) BUN/Creatinine Ratio Glucose POC Glucose 182 H Calcium Magnesium Total Bilirubin AST ALT Alkaline Phosphatase Troponin I High Sens Total Protein Albumin Globulin Albumin/Globulin Ratio Diagnostic Findings Head CT 06/20/23 11:[address] DOSE: 1228.07 mGy.cm HISTORY: neuro deficit, acute stroke suspected TECHNIQUE: Multiaxial CT images of the head were performed without the use of intravenous contrast. Automated exposure control was utilized for this study. A dose lowering technique was utilized adhering to the principles of ALARA. Comparison: None. Findings: There is a small retention cyst within the right maxillary sinus. The right mastoid air cells are clear. There is complete opacification of the left mastoid air cells. Prior bilateral lens replacement. The calvarium and skull base are intact. There is no mass, hematoma, midline shift, acute infarct. White matter hypodensity is nonspecific but suggestive of microvascular ischemic change. The ventricles and sulci demonstrate mild age-related involutional changes. Impression: 1. No acute infarct or intracranial hemorrhage. 2. Left mastoid effusion. 3. Atrophy and microvascular ischemic changes. Head CTA 06/20/23 11:37 CT angio head w con CLINICAL HISTORY: 82 years-old Female with neuro deficit, acute stroke suspe cted. Acute or chronic symptoms COMPARISON STUDY: Head CT of same day TECHNIQUE: Following the IV administration of 117 cc of Optiray, CT angiogram of the brain was performed from the skull base to the vertex. Images are reviewed in the axial, sagittal, and coronal planes. 3-D MIPS images are created and assessed. IV contrast was administered without complication. All measurements were obtained according to NASCET criteria. A dose lowering technique was utilized adhering to the principles of ALARA. FINDINGS: CT ANGIOGRAM OF THE BRAIN: Involutional changes with chronic microvascular ischemic disease. The imaged bilateral internal carotid arteries are patent. The bilateral anterior and middle cerebral arteries are also patent. The vertebrobasilar system and posterior cerebral arteries are widely patent. There is no aneurysm, high-grade stenosis, or proximal branch occlusion identified. Dural sinuses appear patent. Prior bilateral lens repair. Polypoid mucosal thickening of the right maxillary sinus. Large left mastoid and middle ear effusions. IMPRESSION: Unremarkable CTA of the head. ACT 112: Negative or not required by law. Neck CTA 06/20/23 11:37 CT angio neck with con CLINICAL HISTORY: neuro deficit, acute stroke suspected TECHNIQUE: CT angiography of the neck was performed following intravenous administration of iodinated contrast. Coronal and sagittal MIPS were obtained from the axial data set and were submitted for review. Automated dose lowering techniques and/or adjustment according to patient size were utilized for this examination. All measurements were calculated based on NASCET criteria. Comparison: None available at the time of this dictation. FINDINGS: Lungs and soft tissues are unremarkable. CTA Neck: A 3 vessel aortic arch is shown. There is no significant atherosclerotic plaque in the aortic arch or the origins of the innominate, left common carotid, and left subclavian arteries. Calcification is seen at the origin of the left vertebral artery. Scattered atherosclerotic calcification is seen without significant stenosis. The vertebral arteries are codominant. IMPRESSION: No occlusion, hemodynamically significant stenosis, or dissection in the major cervical arteries. Assessment of stenosis of the internal carotid arteries is based on NASCET criteria. Medications Administered Discontinued Medications Acetaminophen (Acetaminophen 500 Mg Tab) 1,000 mg PO NOW STA Stop: 06/20/23 13:27 Last Admin: 06/20/23 13:50 Dose: 1,000 mg Documented By: KAYLYN Calcium Gluconate () 1,000 mg in 60 mls @ 240 mls/hr IV NOW STA Stop: 06/20/23 13:40 Last Infusion: 06/20/23 14:20 Dose: 0 mls/hr Documented By: Admin: 06/20/23 13:51 Dose: 240 mls/hr Documented By: KAYLYN Ioversol (Ioversol 350 Mg 125ml Prefilled Syringe) 117 ml IV ONCE ONE Stop: 06/20/23 11:53 Last Admin: 06/20/23 11:52 Dose: 117 ml Documented By: PLW Lidocaine (Lidocaine 5% 1 Patch) 1 patch TD NOW STA Stop: 06/20/23 13:27 Last Admin: 06/20/23 13:50 Dose: 1 patch Documented By: KAYLYN Morphine Sulfate (Morphine Sulfate 2 Mg/Ml Carp) 2 mg IV NOW STA Stop: 06/20/23 13:27 Last Admin: 06/20/23 13:51 Dose: 2 mg Documented By: KAYLYN Code Status & VTE Plan VTE Prophylaxis Plan VTE Prophylaxis will be ordered: Yes Supervising Physician Co-Signing Physician Notes I have seen and examined the patient and have discussed the case with the provider above. I agree with the assessment and plan as stated. 82 yo F presenting with burning sensation in her left side since this morning associated with a headache and temporary expressive aphasia. Her language, speech and memory are fine now but she still has generalized weakness, mild headache and an abnormal sensation on her left compared to her right. This is present in her L arm and leg and the difference is noted in the left side of her back compared with the right side. No other gross focal deficits. She reports this burning pain also coming up along the posterior aspect of her head on the left but not affecting her face. She is ambulating but not at baseline as she is more wobbly. She is hemodynamically stable and afebrile. DTR in bilateral BR and patella are 2/4. She is moving all extremities symmetrically. Otherwise exam as noted above. Labs/CT head and CTA head/neck reviewed. She has a WBC 15K, mild anemia 11.3/33.3, Na 133, bicarb 20, BUN 52, creat 0.93. Brain MRI pending. Echo, PT/OT and neuro evaluations. Cont monitoring on telemetry. Differential includes but not limited to stroke vs complicated migraine. DO Remberto
[2023-06-20 16:16] LABS: Appearance Urine Clear (Clear); Bilirubin Urine Negative (Negative); Blood Urine Negative (Negative); Color Urine Yellow; Glucose Urine UA Negative (Negative); Ketones Urine Negative (Negative); Leukocyte Esterase Urine Negative (Negative); Nitrite Urine Negative (Negative); Protein Urine Negative (Negative); Specific Gravity Urine > 1.045 (1.000-1.030); Urobilinogen Urine Negative (Negative)
[2023-06-20] MEDS ORDERED: PHARMACIST DISCHARGE MED REC CONSULT PRN (16:55)
[2023-06-20] MEDS ORDERED: GLUCOSE 40% GEL 15 GM TUBE PO PRN (16:55)
[2023-06-20] MEDS ORDERED: CARBOHYDRATES FOR HYPOGLYCEMIA PO PRN (16:55)
[2023-06-20] MEDS ORDERED: GLUCAGON FOR INJ 1 MG VIAL SQ PRN (16:55)
[2023-06-20] MEDS ORDERED: DEXTROSE 50% 50 ML SYRINGE IV PRN (16:55)
[2023-06-20] MEDS ORDERED: GLUCOSE 10 TAB/TUBE PO PRN (16:55)
[2023-06-20] MEDS: Patient's HEIGHT &/or WEIGHT Needed SCH ×3 (17:24→21:08)
[2023-06-20] MEDS: ACETAMINOPHEN 325 MG TAB PO PRN (17:40)
[2023-06-20] MEDS: INSULIN ASPART PER UNIT CHARGE SC SCH ×2 (17:46→21:08)
[2023-06-20] MEDS: METOPROLOL SUCC 50MG EXT REL TAB PO SCH (20:18)
[2023-06-20] MEDS: ASPIRIN 81 MG ECTAB PO SCH (20:18)
[2023-06-20] MEDS: GABAPENTIN 300 MG CAP PO SCH ×2 (20:18→20:20)
--- NOTE | 2023-06-20 20:45 | Magnetic Resonance Report ---
Exam(s): MRI HEAD Without Contrast EXAM: MR Head Without Intravenous Contrast CLINICAL HISTORY: TIA. TECHNIQUE: Magnetic resonance images of the head/brain without intravenous contrast in multiple planes. COMPARISON: CT head 06/20/2023. FINDINGS: Brain: No acute infarct. No intracranial hemorrhage, mass-effect or midline shift. Mild periventricular white matter T2/flair signal abnormalities are most consistent with chronic microangiopathy. Ventricles: Unremarkable. No ventriculomegaly. Bones/joints: Unremarkable. Sinuses: 1.7 cm right maxillary mucous retention cyst or polyp. No acute sinusitis. Mastoid air cells: Large left mastoid effusion. Orbits: Unremarkable as visualized. IMPRESSION: No acute findings in the head/brain. Electronically signed by: Megan Mckeon MD 06/20/23 20:44 PM
[2023-06-21 07:19] LABS: Basophils # (auto) 0.06 K/uL (0-0.2); Basophils % (auto) 0.5 %; Eosinophils % (auto) 0.8 %; Hematocrit (blood only) 39.1 % (37.0-47.0); Immature Granulocytes # (auto) 0.19 K/uL (0.01-0.20); Immature Granulocytes % (auto) 1.5 %; Lymphocytes # (auto) 3.69 K/uL (1.2-3.4); Lymphocytes % (auto) 29.4 %; Mean Corpuscular Hemoglobin 31.8 pg (25.0-34.0); Mean Corpuscular Hgb Conc 33.2 g/dL (32.0-36.0); Mean Corpuscular Volume 95.6 fL (80.0-100.0); Mean Platelet Volume 9.5 fL (9.4-12.4); Monocytes # (auto) 0.93 K/uL (0.11-0.59); Monocytes % (auto) 7.4 %; Neutrophils % (auto) 60.4 %; Platelet Count 398 K/uL (130-400); RDW Coefficient of Variation 13.7 % (11.5-14.5); RDW Standard Deviation 48.2 fL (36.4-46.3); Red Blood Count 4.09 M/uL (4.20-5.40); White Blood Count 12.57 K/ul (4.8-10.8)
[2023-06-21] MEDS: INSULIN ASPART PER UNIT CHARGE SC SCH ×4 (07:42→21:09)
[2023-06-21 07:44] LABS: Calcium 9.2 mg/dl (8.6-10.3); Chol HDL Ratio 4.6 (0-5); Creatinine Clr Calc Pharmacy 43.3 ml/min; Est GFR (African American) 69.1 ml/min; Est GFR (Non-African American) 59.6 ml/min; Potassium 4.5 mmol/L (3.5-5.1)
[2023-06-21] MEDS: CHLORTHALIDONE 25 MG TAB PO SCH (08:16)
[2023-06-21] MEDS: METOPROLOL SUCC 50MG EXT REL TAB PO SCH ×2 (08:16→21:26)
[2023-06-21] MEDS: ISOSORBIDE MONO EXTENDED REL 30 MG TABCR PO SCH (08:16)
[2023-06-21] MEDS: amLODIPine BESYLATE 5 MG TAB PO SCH (08:16)
[2023-06-21] MEDS: lisinopril 40 MG TAB PO SCH (08:17)
[2023-06-21] MEDS: ENOXAPARIN INJ 40 MG/0.4 ML SYR SQ SCH (08:17)
[2023-06-21] MEDS: SPIRONOLACTONE 12.5 MG TAB PO SCH (08:17)
[2023-06-21] MEDS: PANTOprazole 40 MG TAB PO SCH (08:17)
[2023-06-21 08:30] LABS: Estimated Average Glucose 160 mg/dl; Hemoglobin A1C 7.2 % (4.5-5.6)
[2023-06-21] MEDS: ACETAMINOPHEN 325 MG TAB PO PRN ×3 (10:49→22:21)
--- NOTE | 2023-06-21 11:43 | Hospitalist Progress Note ---
Date of Service June 21, 2023 Assessment & Plan (1) Stroke-like symptoms: Plan: 82 y/o female with history of DM2, ASCVD s/p angio/stent, PVD, HTN, CKD3a, dyslipidemia and spinal stenosis who presented to the ED as a stroke alert. Reported to have burning sensation on left side of the body with associated weakness She was a not a candidate for TPA due to timing of last known well (midnight). Her neuro exam in the ED was unremarkable without specific deficits and initial imaging was negative for acute stroke or hemorrhage. CT head without contrast reviewed personally did not show any acute abnormality CTA head and neck rule out large vessel occlusion. MRI brain ruled out acute stroke EKG reviewed personally; normal sinus rhythm; nonspecific ST and T wave changes. Echocardiogram showed EF of 55 to 60%.; Currently on aspirin and evolocumab. PT OT eval (2) Type 2 diabetes mellitus: Plan: A1c of 7.2. Hold home metformin SSI during the hospitalization (3) ASCVD (arteriosclerotic cardiovascular disease): (4) Essential hypertension: (5) Dyslipidemia: Plan: On evolocumab (6) Lumbar spinal stenosis: Plan: Recent outpatient x-rays show age-indeterminate T12 compression fracture, new since Dec 2021. However pt with recent fall and trauma to the back so may be related to this event Patient was on baclofen and Medrol Dosepak which are stopped. Patient reports increased fatigue and tiredness on baclofen CT thoracic spine ordered PT OT eval Pain control with Tylenol. Gabapentin increased to 300 mg at bedtime (7) UTI (urinary tract infection): (8) Urge incontinence of urine: Plan: Reports urge incontinence. Urinary culture growing gram-negative bacilli Started on ceftriaxone Obtain blood culture Plan DVT prophylaxis Lovenox Full code DispoPT OT pending. Time spent evaluating patient, direct bedside care, chart review, placing orders, interpretation of diagnostic studies, discussion with consultants, patient, and family members, as well as other required patient management activities is 60 minutes. Please note the above document was generated using voice recognition software. It may contain grammatical, syntax or spelling errors. Any formal questions or concerns about the content, text or information contained within the body of this dictation should be directly addressed to the provider for clarification Admission and Anticipated Discharge Date Admission Date: June 20, 2023 Subjective Patient seen and examined at bedside. She reports generalized weakness and fatigue. She is afebrile, normotensive and saturating well on room air. Review of Systems Review of Systems: All systems reviewed & are unremarkable except as noted in Subjective Physical Exam Physical Exam: Constitutional: WD/WN, vitals as above, NAD, sitting up in bed, pleasant, conversing easily Respiratory: normal respiratory effort, lungs clear to auscultation, no wheeze, rales, rhonchi. Normal insp/exp effort, no accessory muscle use Cardiovascular: RRR, no murmur, no edema Vessels: no JVD or carotid bruit Chest: normal inspection of chest Abdomen: normal bowel sounds, soft, nontender, no hepatosplenomegaly Musculoskeletal: no cyanosis or clubbing, extremities motor strength 5/5. Tenderness present in Lower part of thoracic spine. Skin: no rashes, warm and dry normal turgor Neurologic: PERRL, EOMI, accommodation nl, no face palsy, no dysarthria CN's II- XI intact bilaterally and moves all extremities Psychiatric: A+Ox3, euthymic affect Results & Data Results & Data Vital Signs (Past 12 Hours) Vital Signs Temp Pulse Pulse Resp BP Pulse Ox O2 Del Method 06/21/23 08:00 57 L 06/21/23 08:14 36.5 C 84 18 141/75 H 93 Room Air 06/21/23 02:34 36.6 C 62 20 166/86 H 98 Room Air 06/21/23 00:00 55 L 06/20/23 23:44 36.5 C 76 147/80 H 95 Room Air Laboratory Results Laboratory Results WBC 12.57 K/ul (4.8-10.8) H 06/21/23 06:02 RBC 4.09 M/uL (4.20-5.40) L 06/21/23 06:02 Hgb 13.0 g/dl (12.0-16.0) 06/21/23 06:02 Hct 39.1 % (37.0-47.0) 06/21/23 06:02 MCV 95.6 fL (80.0-100.0) 06/21/23 06:02 MCH 31.8 pg (25.0-34.0) 06/21/23 06:02 MCHC 33.2 g/dL (32.0-36.0) 06/21/23 06:02 RDW Std Deviation 48.2 fL (36.4-46.3) H 06/21/23 06:02 RDW Coeff of Shirley 13.7 % (11.5-14.5) 06/21/23 06:02 Plt Count 398 K/uL (130-400) 06/21/23 06:02 MPV 9.5 fL (9.4-12.4) 06/21/23 06:02 Immature Gran % (Auto) 1.5 % 06/21/23 06:02 Neut % (Auto) 60.4 % 06/21/23 06:02 Lymph % (Auto) 29.4 % 06/21/23 06:02 [place] % (Auto) 7.4 % 06/21/23 06:02 Eos % (Auto) 0.8 % 06/21/23 06:02 Baso % (Auto) 0.5 % 06/21/23 06:02 Neut # (Auto) 7.60 K/uL (1.40-6.50) H 06/21/23 06:02 Lymph # (Auto) 3.69 K/uL (1.2-3.4) H 06/21/23 06:02 [place] # (Auto) 0.93 K/uL (0.11-0.59) H 06/21/23 06:02 Eos # (Auto) 0.10 K/uL (0-0.50) 06/21/23 06:02 Baso # (Auto) 0.06 K/uL (0-0.2) 06/21/23 06:02 Immature Gran # (Auto) 0.19 K/uL (0.01-0.20) 06/21/23 06:02 PT 11.0 Seconds (9.0-12.0) 06/20/23 12:00 INR 1.0 (0.9-1.1) 06/20/23 12:00 APTT 22.5 Seconds (21.0-31.0) 06/20/23 12:00 PTT Ratio 0.8 06/20/23 12:00 Sodium 139 mmol/L (136-145) 06/21/23 06:02 Potassium 4.5 mmol/L (3.5-5.1) 06/21/23 06:02 Chloride 106 mmol/L (98-107) 06/21/23 06:02 Carbon Dioxide 23 mmol/L (21-32) 06/21/23 06:02 Anion Gap 10 (3-11) 06/21/23 06:02 BUN 40 mg/dl (6-23) H 06/21/23 06:02 Creatinine 0.91 mg/dl (0.6-1.2) 06/21/23 06:02 Est Cr Clr Drug Dosing 43.3 ml/min 06/21/23 06:02 Est GFR ( Amer) 69.1 ml/min 06/21/23 06:02 Est GFR (Non-Af Amer) 59.6 ml/min 06/21/23 06:02 BUN/Creatinine Ratio 44.0 (10-20) H 06/21/23 06:02 Glucose 103 mg/dl (70-99(Fasting)) H 06/21/23 06:02 POC Glucose 127 mg/dl (70-99) H 06/21/23 11:33 Estimat Average Glucose 160 mg/dl 06/21/23 06:02 Hemoglobin A1c 7.2 % (4.5-5.6) H 06/21/23 06:02 Calcium 9.2 mg/dl (8.6-10.3) 06/21/23 06:02 Magnesium 1.7 mg/dl (1.7-2.4) 06/20/23 12:00 Total Bilirubin 0.4 mg/dl (0.2-1.0) 06/20/23 12:00 AST 15 U/L (13-39) 06/20/23 12:00 ALT 31 U/L (7-52) 06/20/23 12:00 Alkaline Phosphatase 98 U/L (34-104) 06/20/23 12:00 Troponin I High Sens 11.9 pg/ml (0-14) 06/20/23 23:14 Total Protein 5.9 gm/dl (6.0-8.3) L 06/20/23 12:00 Albumin 3.4 gm/dl (3.4-5.0) 06/20/23 12:00 Globulin 2.5 gm/dl (2.5-4.0) 06/20/23 12:00 Albumin/Globulin Ratio 1.4 (0.9-2) 06/20/23 12:00 Triglycerides 341 mg/dl (0-150) H 06/21/23 06:02 Cholesterol 156 mg/dl (0-200) 06/21/23 06:02 LDL Cholesterol, Calc 54 mg/dl 06/21/23 06:02 VLDL Cholesterol, Calc 68 mg/dl (0-30) H 06/21/23 06:02 HDL Cholesterol 34 mg/dl 06/21/23 06:02 Cholesterol/HDL Ratio 4.6 (0-5) 06/21/23 06:02 Urine Color Yellow 06/20/23 Unknown Urine Appearance Clear (Clear) 06/20/23 Unknown Urine pH 5.0 (4.5-7.5) 06/20/23 Unknown Ur Specific Edwards > 1.045 (1.000-1.030) H 06/20/23 Unknown Urine Protein Negative (Negative) 06/20/23 Unknown Urine Glucose (UA) Negative (Negative) 06/20/23 Unknown Urine Ketones Negative (Negative) 06/20/23 Unknown Urine Blood Negative (Negative) 06/20/23 Unknown Urine Nitrite Negative (Negative) 06/20/23 Unknown Urine Bilirubin Negative (Negative) 06/20/23 Unknown Urine Urobilinogen Negative (Negative) 06/20/23 Unknown Ur Leukocyte Esterase Negative (Negative) 06/20/[address] 06/20/23 11:[address] DOSE: 1228.07 mGy.cm HISTORY: neuro deficit, acute stroke suspected TECHNIQUE: Multiaxial CT images of the head were performed without the use of intravenous contrast. Automated exposure control was utilized for this study. A dose lowering technique was utilized adhering to the principles of ALARA. Comparison: None. Findings: There is a small retention cyst within the right maxillary sinus. The right mastoid air cells are clear. There is complete opacification of the left mastoid air cells. Prior bilateral lens replacement. The calvarium and skull base are intact. There is no mass, hematoma, midline shift, acute infarct. White matter hypodensity is nonspecific but suggestive of microvascular ischemic change. The ventricles and sulci demonstrate mild age-related involutional changes. Impression: 1. No acute infarct or intracranial hemorrhage. 2. Left mastoid effusion. 3. Atrophy and microvascular ischemic changes. ACT 112: Negative or not required by law. Electronically signed by: Dannie Munoz M.D. 06/20/2023 12:00 PM Head CTA 06/20/23 11:37 CT angio head w con CLINICAL HISTORY: 82 years-old Female with neuro deficit, acute stroke suspec mee. Acute or chronic symptoms COMPARISON STUDY: Head CT of same day TECHNIQUE: Following the IV administration of 117 cc of Optiray, CT angiogram of the brain was performed from the skull base to the vertex. Images are reviewed in the axial, sagittal, and coronal planes. 3-D MIPS images are created and assessed. IV contrast was administered without complication. All measurements were obtained according to NASCET criteria. A dose lowering technique was utilized adhering to the principles of ALARA. FINDINGS: CT ANGIOGRAM OF THE BRAIN: Involutional changes with chronic microvascular ischemic disease. The imaged bilateral internal carotid arteries are patent. The bilateral anterior and middle cerebral arteries are also patent. The vertebrobasilar system and posterior cerebral arteries are widely patent. There is no aneurysm, high-grade stenosis, or proximal branch occlusion identified. Dural sinuses appear patent. Prior bilateral lens repair. Polypoid mucosal thickening of the right maxillary sinus. Large left mastoid and middle ear effusions. IMPRESSION: Unremarkable CTA of the head. ACT 112: Negative or not required by law. The above report was generated using voice recognition software. It may contain grammatical, syntax or spelling errors. Electronically signed by: Bhaskar Estevez M.D. 06/20/2023 12:09 PM Neck CTA 06/20/23 11:37 CT angio neck with con CLINICAL HISTORY: neuro deficit, acute stroke suspected TECHNIQUE: CT angiography of the neck was performed following intravenous administration of iodinated contrast. Coronal and sagittal MIPS were obtained from the axial data set and were submitted for review. Automated dose lowering techniques and/or adjustment according to patient size were utilized for this examination. All measurements were calculated based on NASCET criteria. Comparison: None available at the time of this dictation. FINDINGS: Lungs and soft tissues are unremarkable. CTA Neck: A 3 vessel aortic arch is shown. There is no significant atherosclerotic plaque in the aortic arch or the origins of the innominate, left common carotid, and left subclavian arteries. Calcification is seen at the origin of the left vertebral artery. Scattered atherosclerotic calcification is seen without significant stenosis. The vertebral arteries are codominant. IMPRESSION: No occlusion, hemodynamically significant stenosis, or dissection in the major cervical arteries. Assessment of stenosis of the internal carotid arteries is based on NASCET criteria. ACT 112: Negative or not required by law. Electronically signed by: Ciro Min M.D. 06/20/2023 12:11 PM Brain MRI 06/20/23 16:54 Exam(s): MRI HEAD Without Contrast EXAM: MR Head Without Intravenous Contrast CLINICAL HISTORY: TIA. TECHNIQUE: Magnetic resonance images of the head/brain without intravenous contrast in multiple planes. COMPARISON: CT head 06/20/2023. FINDINGS: Brain: No acute infarct. No intracranial hemorrhage, mass-effect or midline shift. Mild periventricular white matter T2/flair signal abnormalities are most consistent with chronic microangiopathy. Ventricles: Unremarkable. No ventriculomegaly. Bones/joints: Unremarkable. Sinuses: 1.7 cm right maxillary mucous retention cyst or polyp. No acute sinusitis. Mastoid air cells: Large left mastoid effusion. Orbits: Unremarkable as visualized. IMPRESSION: No acute findings in the head/brain. Electronically signed by: Megan Mckeon MD 06/20/23 20:44 PM
[2023-06-21] MEDS: cefTRIAXone SODIUM 2,000 MG in DEXTROSE 5% 50 ML IV SCH (12:12)
--- NOTE | 2023-06-21 13:50 | CT Scan Report ---
CT thoracic spine wo con HISTORY: 82 years-old Female hx of recent fracture on T12 level acute mid to low back pain with repo rted history of recent T12 fracture COMPARISON: Lumbar spine radiograph 08/21/2010, chest radiograph 05/14/2016 TECHNIQUE: Multiple axial CT images of the thoracic spine were obtained without the use of IV contras t. A dose lowering technique was used consistent with the principals of ELIANE. FINDINGS: 25% anteroinferior compression deformity of the T12 vertebral body extends into the posterior endplat e and demonstrates 4 mm retropulsion. No significant paravertebral edema. Posterior elements appear i ntact. No significant central canal stenosis at this interspace, however there is mild bilateral fora ashley narrowing secondary to a moderate to large posterior disc osteophyte complex with facet arthros is at T12-L1. No additional fracture or subluxation identified. No high-grade central canal or forami nal narrowing identified by CT technique. Degenerative changes of the imaged lower cervical spine. [id number] multilevel disc space narrowing, spondylotic spurring and facet arthrosis. Atherosclerosis of the aorta with greater than 50% stenosis of the aorta at the level of the renal ar teries. Tiny hiatal hernia. Calcified hilar lymph nodes. IMPRESSION: 1. Acute to subacute appearing 25% superior endplate compression deformity of T12 with 4 mm of retrop ulsion. 2. No significant central canal or foraminal narrowing. 3. Additional findings as above. ACT 112: Negative or not required by law. The above report was generated using voice recognition software. It may contain grammatical, syntax o r spelling errors. Electronically signed by: Bhaskar Estevez M.D. 06/21/2023 1:47 PM
[2023-06-21] MEDS: GABAPENTIN 300 MG CAP PO SCH (21:25)
[2023-06-21] MEDS: ASPIRIN 81 MG ECTAB PO SCH (21:26)
[2023-06-22 07:17] LABS: Basophils # (auto) 0.04 K/uL (0-0.2); Basophils % (auto) 0.4 %; Eosinophils # (auto) 0.27 K/uL (0-0.50); Eosinophils % (auto) 2.5 %; Hemoglobin 12.6 g/dl (12.0-16.0); Immature Granulocytes # (auto) 0.21 K/uL (0.01-0.20); Lymphocytes % (auto) 33.7 %; Mean Corpuscular Hemoglobin 31.9 pg (25.0-34.0); Mean Corpuscular Hgb Conc 33.2 g/dL (32.0-36.0); Mean Corpuscular Volume 96.2 fL (80.0-100.0); Mean Platelet Volume 9.6 fL (9.4-12.4); Monocytes % (auto) 6.5 %; Neutrophils # (auto) 5.87 K/uL (1.40-6.50); Neutrophils % (auto) 54.9 %; Platelet Count 382 K/uL (130-400); RDW Coefficient of Variation 13.6 % (11.5-14.5); RDW Standard Deviation 48.6 fL (36.4-46.3); Red Blood Count 3.95 M/uL (4.20-5.40); White Blood Count 10.69 K/ul (4.8-10.8)
[2023-06-22 07:25] LABS: Calcium 8.7 mg/dl (8.6-10.3); Est GFR (African American) 55.5 ml/min; Est GFR (Non-African American) 47.9 ml/min
[2023-06-22] MEDS: INSULIN ASPART PER UNIT CHARGE SC SCH ×4 (07:56→20:38)
[2023-06-22] MEDS: ACETAMINOPHEN 325 MG TAB PO PRN ×3 (07:59→23:24)
[2023-06-22] MEDS: CHLORTHALIDONE 25 MG TAB PO SCH (08:00)
[2023-06-22] MEDS: PANTOprazole 40 MG TAB PO SCH (08:00)
[2023-06-22] MEDS: amLODIPine BESYLATE 5 MG TAB PO SCH (08:00)
[2023-06-22] MEDS: SPIRONOLACTONE 12.5 MG TAB PO SCH (08:00)
[2023-06-22] MEDS: ENOXAPARIN INJ 40 MG/0.4 ML SYR SQ SCH (08:01)
[2023-06-22] MEDS: lisinopril 40 MG TAB PO SCH (08:01)
[2023-06-22] MEDS: METOPROLOL SUCC 50MG EXT REL TAB PO SCH ×2 (08:01→20:03)
[2023-06-22] MEDS: ISOSORBIDE MONO EXTENDED REL 30 MG TABCR PO SCH (08:01)
[2023-06-22] MEDS: cefTRIAXone SODIUM 2,000 MG in DEXTROSE 5% 50 ML IV SCH (11:42)
--- NOTE | 2023-06-22 12:06 | Hospitalist Progress Note ---
Date of Service June 22, 2023 Assessment & Plan (1) Stroke-like symptoms: Plan: 82 y/o female with history of DM2, ASCVD s/p angio/stent, PVD, HTN, CKD3a, dyslipidemia and spinal stenosis who presented to the ED as a stroke alert. Reported to have burning sensation on left side of the body with associated weakness She was a not a candidate for TPA due to timing of last known well (midnight). Her neuro exam in the ED was unremarkable without specific deficits and initial imaging was negative for acute stroke or hemorrhage. CT head without contrast reviewed personally did not show any acute abnormality CTA head and neck rule out large vessel occlusion. MRI brain ruled out acute stroke EKG reviewed personally; normal sinus rhythm; nonspecific ST and T wave changes. Echocardiogram showed EF of 55 to 60%.; Currently on aspirin and evolocumab. PT OT eval (2) Type 2 diabetes mellitus: Plan: A1c of 7.2. Hold home metformin SSI during the hospitalization (3) ASCVD (arteriosclerotic cardiovascular disease): (4) Essential hypertension: (5) Dyslipidemia: Plan: On evolocumab (6) Lumbar spinal stenosis: Plan: Recent outpatient x-rays show age-indeterminate T12 compression fracture, new since Dec 2021. However pt with recent fall and trauma to the back so may be related to this event Patient was on baclofen and Medrol Dosepak which are stopped. Patient reports increased fatigue and tiredness on baclofen CT thoracic spine reviewed; patient was found to have Acute to subacute appearing 25% superior endplate compression deformity of T12 with 4 mm of retropulsion. Discussed the finding with the patient. Will consult orthospine tomorrow a.m. Patient may also need orthopedic consult for brace. Continue PT OT Pain control with Tylenol. Gabapentin increased to 300 mg at bedtime. Tolerating it well. (7) UTI (urinary tract infection): (8) Urge incontinence of urine: Plan: Reports urge incontinence. Urinary culture growing E. coli; pansensitive. i Continue on ceftriaxone Blood culture pending. Plan DVT prophylaxis Lovenox Full code DispoPT OT pending. Time spent evaluating patient, direct bedside care, chart review, placing orders, interpretation of diagnostic studies, discussion with consultants, patient, and family members, as well as other required patient management activities is 60 minutes. Please note the above document was generated using voice recognition software. It may contain grammatical, syntax or spelling errors. Any formal questions or concerns about the content, text or information contained within the body of this dictation should be directly addressed to the provider for clarification Admission and Anticipated Discharge Date Admission Date: June 20, 2023 Subjective Patient seen and examined at bedside. She is sitting up on the chair comfortably. She reports that she is feeling much better today. Review of Systems Review of Systems: All systems reviewed & are unremarkable except as noted in Subjective Physical Exam Physical Exam: Constitutional: WD/WN, vitals as above, NAD, sitting up in bed, pleasant, conversing easily Respiratory: normal respiratory effort, lungs clear to auscultation, no wheeze, rales, rhonchi. Normal insp/exp effort, no accessory muscle use Cardiovascular: RRR, no murmur, no edema Vessels: no JVD or carotid bruit Chest: normal inspection of chest Abdomen: normal bowel sounds, soft, nontender, no hepatosplenomegaly Musculoskeletal: no cyanosis or clubbing, extremities motor strength 5/5. Tenderness present in Lower part of thoracic spine. Skin: no rashes, warm and dry normal turgor Neurologic: PERRL, EOMI, accommodation nl, no face palsy, no dysarthria CN's II- XI intact bilaterally and moves all extremities Psychiatric: A+Ox3, euthymic affect Results & Data Results & Data Vital Signs (Past 12 Hours) Vital Signs Temp Pulse Pulse Resp BP Pulse Ox O2 Del Method 06/22/23 11:00 36.5 C 75 19 115/75 95 Room Air 06/22/23 08:00 49 L 06/22/23 07:06 36.8 C 74 18 135/83 93 Room Air 06/22/23 04:31 36.5 C 57 L 20 145/87 H 95 Room Air Laboratory Results Laboratory Results WBC 10.69 K/ul (4.8-10.8) 06/22/23 05:37 RBC 3.95 M/uL (4.20-5.40) L 06/22/23 05:37 Hgb 12.6 g/dl (12.0-16.0) 06/22/23 05:37 Hct 38.0 % (37.0-47.0) 06/22/23 05:37 MCV 96.2 fL (80.0-100.0) 06/22/23 05:37 MCH 31.9 pg (25.0-34.0) 06/22/23 05:37 MCHC 33.2 g/dL (32.0-36.0) 06/22/23 05:37 RDW Std Deviation 48.6 fL (36.4-46.3) H 06/22/23 05:37 RDW Coeff of [place] 13.6 % (11.5-14.5) 06/22/23 05:37 Plt Count 382 K/uL (130-400) 06/22/23 05:37 MPV 9.6 fL (9.4-12.4) 06/22/23 05:37 Immature Gran % (Auto) 2.0 % 06/22/23 05:37 Neut % (Auto) 54.9 % 06/22/23 05:37 Lymph % (Auto) 33.7 % 06/22/23 05:37 [place] % (Auto) 6.5 % 06/22/23 05:37 Eos % (Auto) 2.5 % 06/22/23 05:37 Baso % (Auto) 0.4 % 06/22/23 05:37 Neut # (Auto) 5.87 K/uL (1.40-6.50) 06/22/23 05:37 Lymph # (Auto) 3.60 K/uL (1.2-3.4) H 06/22/23 05:37 [place] # (Auto) 0.70 K/uL (0.11-0.59) H 06/22/23 05:37 Eos # (Auto) 0.27 K/uL (0-0.50) 06/22/23 05:37 Baso # (Auto) 0.04 K/uL (0-0.2) 06/22/23 05:37 Immature Gran # (Auto) 0.21 K/uL (0.01-0.20) H 06/22/23 05:37 PT 11.0 Seconds (9.0-12.0) 06/20/23 12:00 INR 1.0 (0.9-1.1) 06/20/23 12:00 APTT 22.5 Seconds (21.0-31.0) 06/20/23 12:00 PTT Ratio 0.8 06/20/23 12:00 Sodium 138 mmol/L (136-145) 06/22/23 05:37 Potassium 4.0 mmol/L (3.5-5.1) 06/22/23 05:37 Chloride 106 mmol/L (98-107) 06/22/23 05:37 Carbon Dioxide 23 mmol/L (21-32) 06/22/23 05:37 Anion Gap 9 (3-11) 06/22/23 05:37 BUN 48 mg/dl (6-23) H 06/22/23 05:37 Creatinine 1.09 mg/dl (0.6-1.2) 06/22/23 05:37 Est Cr Clr Drug Dosing 36.0 ml/min 06/22/23 05:37 Est GFR ( Amer) 55.5 ml/min 06/22/23 05:37 Est GFR (Non-Af Amer) 47.9 ml/min 06/22/23 05:37 BUN/Creatinine Ratio 44.0 (10-20) H 06/22/23 05:37 Glucose 142 mg/dl (70-99(Fasting)) H 06/22/23 05:37 POC Glucose 180 mg/dl (70-99) H 06/22/23 11:03 Estimat Average Glucose 160 mg/dl 06/21/23 06:02 Hemoglobin A1c 7.2 % (4.5-5.6) H 06/21/23 06:02 Calcium 8.7 mg/dl (8.6-10.3) 06/22/23 05:37 Magnesium 1.7 mg/dl (1.7-2.4) 06/20/23 12:00 Total Bilirubin 0.4 mg/dl (0.2-1.0) 06/20/23 12:00 AST 15 U/L (13-39) 06/20/23 12:00 ALT 31 U/L (7-52) 06/20/23 12:00 Alkaline Phosphatase 98 U/L (34-104) 06/20/23 12:00 Troponin I High Sens 11.9 pg/ml (0-14) 06/20/23 23:14 Total Protein 5.9 gm/dl (6.0-8.3) L 06/20/23 12:00 Albumin 3.4 gm/dl (3.4-5.0) 06/20/23 12:00 Globulin 2.5 gm/dl (2.5-4.0) 06/20/23 12:00 Albumin/Globulin Ratio 1.4 (0.9-2) 06/20/23 12:00 Triglycerides 341 mg/dl (0-150) H 06/21/23 06:02 Cholesterol 156 mg/dl (0-200) 06/21/23 06:02 LDL Cholesterol, Calc 54 mg/dl 06/21/23 06:02 VLDL Cholesterol, Calc 68 mg/dl (0-30) H 06/21/23 06:02 HDL Cholesterol 34 mg/dl 06/21/23 06:02 Cholesterol/HDL Ratio 4.6 (0-5) 06/21/23 06:02 Urine Color Yellow 06/20/23 Unknown Urine Appearance Clear (Clear) 06/20/23 Unknown Urine pH 5.0 (4.5-7.5) 06/20/23 Unknown Ur Specific [place] > 1.045 (1.000-1.030) H 06/20/23 Unknown Urine Protein Negative (Negative) 06/20/23 Unknown Urine Glucose (UA) Negative (Negative) 06/20/23 Unknown Urine Ketones Negative (Negative) 06/20/23 Unknown Urine Blood Negative (Negative) 06/20/23 Unknown Urine Nitrite Negative (Negative) 06/20/23 Unknown Urine Bilirubin Negative (Negative) 06/20/23 Unknown Urine Urobilinogen Negative (Negative) 06/20/23 Unknown Ur Leukocyte Esterase Negative (Negative) 06/20/[address] 06/20/23 11:[address] DOSE: 1228.07 mGy.cm HISTORY: neuro deficit, acute stroke suspected TECHNIQUE: Multiaxial CT images of the head were performed without the use of intravenous contrast. Automated exposure control was utilized for this study. A dose lowering technique was utilized adhering to the principles of ALARA. Comparison: None. Findings: There is a small retention cyst within the right maxillary sinus. The right mastoid air cells are clear. There is complete opacification of the left mastoid air cells. Prior bilateral lens replacement. The calvarium and skull base are intact. There is no mass, hematoma, midline shift, acute infarct. White matter hypodensity is nonspecific but suggestive of microvascular ischemic change. The ventricles and sulci demonstrate mild age-related involutional changes. Impression: 1. No acute infarct or intracranial hemorrhage. 2. Left mastoid effusion. 3. Atrophy and microvascular ischemic changes. ACT 112: Negative or not required by law. Electronically signed by: Dannie Munoz M.D. 06/20/2023 12:00 PM Head CTA 06/20/23 11:37 CT angio head w con CLINICAL HISTORY: 82 years-old Female with neuro deficit, acute stroke suspected. Acute or chronic symptoms COMPARISON STUDY: Head CT of same day TECHNIQUE: Following the IV administration of 117 cc of Optiray, CT angiogram of the brain was performed from the skull base to the vertex. Images are reviewed in the axial, sagittal, and coronal planes. 3-D MIPS images are created and assessed. IV contrast was administered without complication. All measurements were obtained according to NASCET criteria. A dose lowering technique was utilized adhering to the principles of ALARA. FINDINGS: CT ANGIOGRAM OF THE BRAIN: Involutional changes with chronic microvascular ischemic disease. The imaged bilateral internal carotid arteries are patent. The bilateral anterior and middle cerebral arteries are also patent. The vertebrobasilar system and posterior cerebral arteries are widely patent. There is no aneurysm, high-grade stenosis, or proximal branch occlusion identified. Dural sinuses appear patent. Prior bilateral lens repair. Polypoid mucosal thickening of the right maxillary sinus. Large left mastoid and middle ear effusions. IMPRESSION: Unremarkable CTA of the head. ACT 112: Negative or not required by law. The above report was generated using voice recognition software. It may contain grammatical, syntax or spelling errors. Electronically signed by: Bhaskar Estevez M.D. 06/20/2023 12:09 PM Neck CTA 06/20/23 11:37 CT angio neck with con CLINICAL HISTORY: neuro deficit, acute stroke suspected TECHNIQUE: CT angiography of the neck was performed following intravenous administration of iodinated contrast. Coronal and sagittal MIPS were obtained from the axial data set and were submitted for review. Automated dose lowering techniques and/or adjustment according to patient size were utilized for this examination. All measurements were calculated based on NASCET criteria. Comparison: None available at the time of this dictation. FINDINGS: Lungs and soft tissues are unremarkable. CTA Neck: A 3 vessel aortic arch is shown. There is no significant atherosclerotic plaque in the aortic arch or the origins of the innominate, left common carotid, and left subclavian arteries. Calcification is seen at the origin of the left vertebral artery. Scattered atherosclerotic calcification is seen without significant stenosis. The vertebral arteries are codominant. IMPRESSION: No occlusion, hemodynamically significant stenosis, or dissection in the major cervical arteries. Assessment of stenosis of the internal carotid arteries is based on NASCET criteria. ACT 112: Negative or not required by law. Electronically signed by: Ciro Min M.D. 06/20/2023 12:11 PM Brain MRI 06/20/23 16:54 Exam(s): MRI HEAD Without Contrast EXAM: MR Head Without Intravenous Contrast CLINICAL HISTORY: TIA. TECHNIQUE: Magnetic resonance images of the head/brain without intravenous contrast in multiple planes. COMPARISON: CT head 06/20/2023. FINDINGS: Brain: No acute infarct. No intracranial hemorrhage, mass-effect or midline shift. Mild periventricular white matter T2/flair signal abnormalities are most consistent with chronic microangiopathy. Ventricles: Unremarkable. No ventriculomegaly. Bones/joints: Unremarkable. Sinuses: 1.7 cm right maxillary mucous retention cyst or polyp. No acute sinusitis. Mastoid air cells: Large left mastoid effusion. Orbits: Unremarkable as visualized. IMPRESSION: No acute findings in the head/brain. Electronically signed by: Megan Mckeon MD 06/20/23 20:[address] 06/21/23 11:46 CT thoracic spine wo con HISTORY: 82 years-old Female hx of recent fracture on T12 level acute mid to low back pain with reported history of recent T12 fracture COMPARISON: Lumbar spine radiograph 08/21/2010, chest radiograph 05/14/2016 TECHNIQUE: Multiple axial CT images of the thoracic spine were obtained without the use of IV contrast. A dose lowering technique was used consistent with the principals of ALARA. FINDINGS: 25% anteroinferior compression deformity of the T12 vertebral body extends into the posterior endplate and demonstrates 4 mm retropulsion. No significant paravertebral edema. Posterior elements appear intact. No significant central canal stenosis at this interspace, however there is mild bilateral foraminal narrowing secondary to a moderate to large posterior disc osteophyte complex with facet arthrosis at T12-L1. No additional fracture or subluxation identified. No high-grade central canal or foraminal narrowing identified by CT technique. Degenerative changes of the imaged lower cervical spine. Mild-to-m oderate multilevel disc space narrowing, spondylotic spurring and facet arthrosis. Atherosclerosis of the aorta with greater than 50% stenosis of the aorta at the level of the renal arteries. Tiny hiatal hernia. Calcified hilar lymph nodes. IMPRESSION: 1. Acute to subacute appearing 25% superior endplate compression deformity of T12 with 4 mm of retropulsion. 2. No significant central canal or foraminal narrowing. 3. Additional findings as above. ACT 112: Negative or not required by law. The above report was generated using voice recognition software. It may contain grammatical, syntax or spelling errors. Electronically signed by: Bhaskar Estevez M.D. 06/21/2023 1:47 PM
[2023-06-22] MEDS: GABAPENTIN 300 MG CAP PO SCH (20:04)
[2023-06-22] MEDS: ASPIRIN 81 MG ECTAB PO SCH (20:04)
[2023-06-23 05:56] LABS: Basophils # (auto) 0.04 K/uL (0-0.2); Basophils % (auto) 0.3 %; Eosinophils # (auto) 0.36 K/uL (0-0.50); Eosinophils % (auto) 2.8 %; Hematocrit (blood only) 37.5 % (37.0-47.0); Hemoglobin 12.6 g/dl (12.0-16.0); Immature Granulocytes # (auto) 0.25 K/uL (0.01-0.20); Lymphocytes % (auto) 28.3 %; Mean Corpuscular Hemoglobin 31.8 pg (25.0-34.0); Mean Corpuscular Hgb Conc 33.6 g/dL (32.0-36.0); Mean Corpuscular Volume 94.7 fL (80.0-100.0); Mean Platelet Volume 9.1 fL (9.4-12.4); Monocytes # (auto) 0.75 K/uL (0.11-0.59); Monocytes % (auto) 5.9 %; Neutrophils % (auto) 60.7 %; Platelet Count 349 K/uL (130-400); RDW Coefficient of Variation 13.3 % (11.5-14.5); RDW Standard Deviation 46.4 fL (36.4-46.3); Red Blood Count 3.96 M/uL (4.20-5.40)
[2023-06-23 06:11] LABS: BUN Creatinine Ratio 37.8 (10-20); Calcium 8.8 mg/dl (8.6-10.3); Est GFR (African American) 49.9 ml/min; Est GFR (Non-African American) 43.1 ml/min; Potassium 4.2 mmol/L (3.5-5.1)
[2023-06-23] MEDS: amLODIPine BESYLATE 5 MG TAB PO SCH (07:58)
[2023-06-23] MEDS: ISOSORBIDE MONO EXTENDED REL 30 MG TABCR PO SCH (07:58)
[2023-06-23] MEDS: SPIRONOLACTONE 12.5 MG TAB PO SCH (07:59)
[2023-06-23] MEDS: lisinopril 40 MG TAB PO SCH (07:59)
[2023-06-23] MEDS: PANTOprazole 40 MG TAB PO SCH (07:59)
[2023-06-23] MEDS: METOPROLOL SUCC 50MG EXT REL TAB PO SCH (08:00)
[2023-06-23] MEDS: CHLORTHALIDONE 25 MG TAB PO SCH (08:00)
[2023-06-23] MEDS: ACETAMINOPHEN 325 MG TAB PO PRN (08:05)
[2023-06-23] MEDS: ENOXAPARIN INJ 40 MG/0.4 ML SYR SQ SCH (08:06)
[2023-06-23] MEDS: INSULIN ASPART PER UNIT CHARGE SC SCH ×2 (08:06→13:00)
--- NOTE | 2023-06-23 10:32 | Pharmacy Report ---
- Date of Service June 23, 2023 - Pharmacy CVA/TIA Medication Review Medications to Prevent Stroke handout has been added to the patients discharge packet. Antiplatelet(s) * Aspirin 81 mg PO daily Cholesterol * Patient is on Repatha at home for hyperlipidemia DVT Prophylaxis * Enoxaparin SQ Therapeutic Anticoagulation * No history of Afib/Aflutter noted Type 2 Diabetes * Patient has T2DM, but per Dr Aguilera, a diabetes medication with proven CVD benefit will be deferred to their outpatient provider due to familiarity with risks/benefits of such therapies. "Medications to prevent stroke" handout has already been added to the patient's discharge packet, which instructs the patient to follow up with their outpatient provider to evaluate which diabetes medication with proven CVD benefit is best for them
[2023-06-23] MEDS: cefTRIAXone SODIUM 2,000 MG in DEXTROSE 5% 50 ML IV SCH ×2 (13:08→13:19)
--- NOTE | 2023-06-23 14:36 | Discharge Summary ---
Date of Service June 23, 2023 Admission HPI Per Admitting Provider This is an 82 y/o female with a history of DM2, ASCVD with prior angioplasty/stent, PVD, HTN, CKD3a, dyslipidemia, spinal stenosis, OA, and urge incontinence who presented to the ED today as a stroke alert due to burning sensation on the left half of her body with question of associated weakness. Today, got up around 5 am and had been incontinent overnight. Ongoing issues with urinary incontinence, which has gradually been worsening. Got up, cleaned self up, and went back to bed. When she got up a little later and was getting ready for the day, she developed a burning sensation in her chest and back that radiated to her left arm, left leg, and neck. Her daughter, who she lives with, also noted that she was weaker and unable able to get up off the chair so they called 911. Family does note that the weakness was bilateral while the burning was only on the left. This burning sensation lasted until after she arrived in the ED then seemed to fade. However, it has returned intermittently since being in the ED although now radiating to her right leg as well. Pt was very tearful during the visit and admits to being frustrated with her worsening health issues. She also notes the loss of her of 62 years last July and has struggled with increased grief as the anniversary approaches. Chronic issues with back pain due to arthritis and spinal stenosis. About ten days ago, she lost her balance while on a step stool and fell landing on back and buttocks. Thinks she did catch her head on the corner of the bifold door as she fell. Since then, she's had increased mid to lower back pain with some difficulty ambulating. Admission Exam Per Admitting Provider Constitutional: well developed and well nourished; no acute distress Eyes: PERRL, conjunctivae normal, anicteric sclerae ENMT: external ear and nose normal, oropharynx normal Neck: trachea midline Respiratory: no respiratory distress and no labored breathing Auscultation: lungs clear to auscultation bilaterally Cardiovascular: Rate/Rhythm: regular rate and regular rhythm Vessels: radial pulses present; no carotid bruit Extremities: no pedal edema Gastrointestinal (Abdomen): Inspection/Auscultation: normal bowel sounds; abdomen not distended Percussion/Palpation: abdomen soft Musculoskeletal: Head/Neck/Chest: normocephalic, head atraumatic and neck supple Bilateral UE and LE strength 4/5 and equal Skin: no jaundice Neurologic: moves all extremities; no focal motor deficits and not confused Speech / Cognition: normal speech Cranial Nerves: PERRL, normal accommodation, normal facial strength, tongue midline and able to rotate head bilaterally Psychiatric: Orientation: alert and oriented x 3 Eye Contact: + fair eye contact Affect: + tearful affect Mood: + depressed mood Principal Diagnosis Strokelike symptoms T12 compression fracture UTI Discharge Exam Constitutional: WD/WN, vitals as above, NAD, sitting up in bed, pleasant, conversing easily Respiratory: normal respiratory effort, lungs clear to auscultation, no wheeze, rales, rhonchi. Normal insp/exp effort, no accessory muscle use Cardiovascular: RRR, no murmur, no edema Vessels: no JVD or carotid bruit Chest: normal inspection of chest Abdomen: normal bowel sounds, soft, nontender, no hepatosplenomegaly Musculoskeletal: no cyanosis or clubbing, extremities motor strength 5/5. Tenderness present in Lower part of thoracic spine. Skin: no rashes, warm and dry normal turgor Neurologic: PERRL, EOMI, accommodation nl, no face palsy, no dysarthria CN's II- XI intact bilaterally and moves all extremities Psychiatric: A+Ox3, euthymic affect Discharge Data Allergies Allergy/AdvReac Type Severity Reaction Status Date / Time quinine Allergy Intermediate rash Verified 12/29/17 06:05 atorvastatin Allergy Mild MYALGIAS Verified 12/29/17 06:05 propoxyphene AdvReac Intermediate N/V and Verified 12/29/17 06:05 dizziness erythromycin base AdvReac Mild "sick in Verified 12/29/17 06:05 stomach" Consultations 06/20/23 13:45 ED Decision to Admit Stat 06/23/23 07:35 Consult Orthopedic Spine Surgery Routine Ordered Studies 06/20/23 11:37 CT angio head w con Stat CT angio neck with con Stat CT head/brain wo con Stat 06/20/23 16:54 MR brain wo con Routine 06/21/23 11:46 CT thoracic spine wo con Routine Hospital Course (1) Stroke-like symptoms: 82 y/o female with history of DM2, ASCVD s/p angio/stent, PVD, HTN, CKD3a, dyslipidemia and spinal stenosis who presented to the ED as a stroke alert. Reported to have burning sensation on left side of the body with associated weakness She was a not a candidate for TPA due to timing of last known well (midnight). Her neuro exam in the ED was unremarkable without specific deficits and initial imaging was negative for acute stroke or hemorrhage. CT head without contrast reviewed personally did not show any acute abnormality CTA head and neck rule out large vessel occlusion. MRI brain ruled out acute stroke EKG reviewed personally; normal sinus rhythm; nonspecific ST and T wave changes. Echocardiogram showed EF of 55 to 60%.; Hospital course; :patient symptoms were thought likely due to use of baclofen an d UTI. Her symptoms improved throughout the hospitalization. PT OT evaluation was done; patient was recommended to go to SNF. However, patient opted to go home and scripts were given for outpatient PT and OT She was also given a course of antibiotic (2) Type 2 diabetes mellitus: (3) ASCVD (arteriosclerotic cardiovascular disease): (4) Essential hypertension: (5) Dyslipidemia: On evolocumab (6) Lumbar spinal stenosis: Recent outpatient x-rays show age-indeterminate T12 compression fracture, new since Dec 2021. During the hospitalization; CT thoracic spine was done; patient was found to have Acute to subacute appearing 25% superior endplate compression deformity of T12 with 4 mm of retropulsion. Findings were discussed with the patient. Orthospine consultation was not available in the hospital. Patient was recommended to stay in the hospital and have evaluation done when orthospine consultation was available. Patient reported improvement in back pain. Orthotic consultation was done for lumbar brace. Patient was discharged home with outpatient PT OT (7) UTI (urinary tract infection): (8) Urge incontinence of urine: Urinary culture growing E. coli; pansensitive. Treated with ceftriaxone. Blood culture was negative. Discharged on oral antibiotic for 3 more days Plan Please note the above document was generated using voice recognition software. It may contain grammatical, syntax or spelling errors. Any formal questions or concerns about the content, text or information contained within the body of this dictation should be directly addressed to the provider for clarification Total Time Total Time Spent Total Time Spent (In Minutes): 45 Total Time Includes: Examination of the Patient, Discharge Planning, Medication Reconciliation, Communication With Other Providers and Other Discharge Plan Discharge Items Patient Disposition: Home - Self-Care Reason For Visit: TIA?, WEAKNESS, BACK PAIN Discharge Diagnosis: Stroke-like symptoms T12 compression fracture Activity: Resume your previous activity Non-emergency contact: Primary Care Provider Call non-emergency contact if: you have any medication questions and your symptoms worsen Follow-up/Referrals: Karine Bonilla, [Primary Care Provider] - (Date & Time 06/26/2023 1:00 PM Provider Steve Solomon MD [facility] ) Diet: Regular Addtl Attending Provider Instructions: The reason for your symptoms that you presented with are likely due to urine tract infection and medication (baclofen). For the UTI, you are prescribed antibiotic (Augmentin) to be taken twice daily for 3 more days. Stop taking baclofen and Medrol. CT of the thoracic spine was done which showed acute to subacute 25% superior endplate compression deformity at T12 with 4 mm of retropulsion. Please use lumbar brace when you are up and moving. You can remove it while you are in the bed. Please follow-up with your primary care doctor and obtain referral for orthospine for evaluation of the compression fracture. Please take the prescription provided to you about physical therapy and Occupational Therapy so that you continue PT OT after you go home. Pending Studies at Discharge: No Stand-Alone Forms: My [facility], Smoking Cessation, Medications to Prevent Stroke Medications and DC Order Prescriptions: New acetaminophen 325 mg Tablet 650 mg PO Q4H PRN (Reason: pain) Qty: 60 0RF gabapentin 300 mg Capsule 300 mg PO HS Qty: 30 0RF amoxicillin-pot clavulanate 875-125 mg tablet 1 tab PO BID 3 Days Qty: 6 0RF Continued amlodipine 10 mg Tablet 10 mg PO DAILY Qty: 0 Rx Instructions: per pharmacy they have daily instead of bid evolocumab 140 MG/ML INJECTION 1 dose INJ Q14D Qty: 0 Patient Comments: uses for cholesterol control metoprolol succinate 50 mg tablet extended release 24 hr 50 mg PO AMPM ondansetron HCl 4 mg tablet 4 mg PO Q6H PRN (Reason: Nausea) spironolactone 25 mg Tablet 12.5 mg PO DAILY omeprazole 20 mg capsule,delayed release(DR/EC) 20 mg PO DAILY lisinopril 40 mg tablet 40 mg PO DAILY metformin 500 mg tablet extended release 24 hr 500 mg PO DAILY aspirin 81 mg Tablet,Delayed Release (Dr/Ec) 162 mg PO HS fluticasone propionate [Flonase] 50 mcg/actuation [place],Suspension 2 spray INTRANASAL DAILY PRN (Reason: Nasal Congestion) Rx Instructions: administer into each nostril isosorbide mononitrate 30 mg tablet extended release 24 hr 30 mg PO DAILY cyanocobalamin (vitamin B-12) [Vitamin B-12] 1,000 mcg Tablet 1,000 mcg PO DAILY chlorthalidone 25 mg tablet 25 mg PO DAILY Premarin 0.625 mg/gram cream 1 applic vaginal WK Discontinued baclofen 10 mg tablet 10 mg PO TID methylprednisolone [Medrol (Yasmany)] 4 mg tablets,dose pack See Rx Instructions .ROUTE .COMPLEX Rx Instructions: as directed gabapentin 100 mg capsule 100 mg PO HS Discharge Orders: Discharge Order (Routine); Ordered 06/23/23 Ordered By: Doc Hassan/Other Patient Handouts: Managing Type 2 Diabetes Admission Data Admit Date/Time: 06/20/23 14:36 Attending Provider: Doc Aguilera Admit Provider: Aydee Sr Primary Care Provider: Karine Bonilla Other Providers: Aydee Sr ; Stanislav Bobo
== END 2023-06-23 15:55 | disposition home or self-care (01) | DRG 690 ==
LOC: ED 11:41 → SUATTDRO 14:36 → 2E 14:36